=== PATIENT | male | born 1970 | race Two or more races ===

== ENCOUNTER 2017-01-12 17:35 | Inpatient (IN) | payer BC, SELFPAY ==
[~2017-01-12] VITALS: Ht 170.2 cm; Wt 83.4 kg
[2017-01-12] MEDS ORDERED: GLUC500T PO (17:42)
[2017-01-12] MEDS ORDERED: ZOLO50TA PO (17:42)
[2017-01-12] MEDS ORDERED: LISI10TA4 PO (17:42)
[2017-01-12] MEDS ORDERED: NS 1,000 ML IV ONE (18:00)
[2017-01-12] MEDS ORDERED: CLINDAMYCIN 900 MG in APPROPRIATE DILUENT 1 EA IV ONE (18:00)
[2017-01-12] MEDS ORDERED: ACETAMINOPHEN 325 MG TAB PO ONE (18:00)
[2017-01-12] MEDS: metFORMIN (GLUCOPHAGE) 500 MG TAB PO SCH (18:00)
[2017-01-12] MEDS ORDERED: KETOROLAC 30 MG/ML VIAL (J1885) IV ONE (18:00)
[2017-01-12 18:31] LABS: BASO % 0.1 % (0.0-1.0); EOS # 0.1 K/mm3 (0.0-0.50); EOS % 0.6 % (0.0-3.0); LARGE UNSTAINED CELL # 0.1 K/mm3 (0.0-0.4); LARGE UNSTAINED CELL % 0.8 % (0.0-4.0); LYMPH # 0.8 K/mm3 (1.5-4.5); LYMPH % 4.4 % (24.0-44.0); MEAN CORPUSCULAR HEMOGLOBIN 30.9 pg (27.0-33.0); MEAN CORPUSCULAR HGB CONC 34.6 g/dl (32.0-36.5); MEAN CORPUSCULAR VOLUME 89.5 fl (80.0-96.0); MONO # 0.9 K/mm3 (0.0-0.8); MONO % 6.2 % (0.0-5.0); NEUTROPHILS % 87.9 % (36.0-66.0); PLATELET COUNT, AUTOMATED 209 k/mm3 (150-450); RED CELL DISTRIBUTION WIDTH 12.1 % (11.5-14.5); WHITE BLOOD COUNT 14.8 K/mm3 (4.0-10.0)
[2017-01-12 19:11] LABS: ANION GAP 8 MEQ/L (8-16); BLOOD UREA NITROGEN 17 MG/DL (7-18); CALCIUM LEVEL 8.8 MG/DL (8.5-10.1); CARBON DIOXIDE LEVEL 25 MEQ/L (21-32); CHLORIDE LEVEL 104 MEQ/L (98-107); CREATININE FOR GFR 1.04 MG/DL (0.70-1.30); GLOMERULAR FILTRATION RATE > 60.0 (>60); GLUCOSE, FASTING 233 MG/DL (70-105); POTASSIUM SERUM 4.3 MEQ/L (3.5-5.1); SODIUM LEVEL 137 MEQ/L (136-145)
[2017-01-12] MEDS ORDERED: GLUCAGON FOR INJ 1 MG VIAL (J1610) SC PRN (20:00)
[2017-01-12] MEDS ORDERED: NALOXONE INJ 0.4 MG/1 ML VIAL (J2310) IV PRN (20:00)
[2017-01-12] MEDS ORDERED: MORPHINE 2 MG/ML 1ML SYRINGE IV PRN (20:00)
[2017-01-12] MEDS ORDERED: PERCOCET 5MG/325MG TAB PO ONE (20:00)
[2017-01-12] MEDS ORDERED: DEXTROSE 50% 50 ML SYRINGE IV PRN (20:00)
[2017-01-12] MEDS ORDERED: GLUCOSE 4 GM CHEW TABLET PO PRN (20:00)
[2017-01-12] MEDS ORDERED: NS 1,000 ML IV SCH (20:30)
[2017-01-12] MEDS: CEFTAROLINE FOSAMIL 600 MG in D5W MINI-BAG PLUS 50 ML IV SCH (21:00)
[2017-01-12 21:01] LABS: ERYTHROCYTE SEDIMENTATION RATE 55 mm/hr (0-15)
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
[2017-01-12 21:55] VITALS: BP 130/84
[2017-01-12] MEDS: HumaLOG INSULIN (NovoLOG) PER UNIT SC SCH (22:08)
[2017-01-13 06:00] VITALS: BP 127/77
[2017-01-13 07:00] LABS: BASO % 0.2 % (0.0-1.0); EOS # 0.2 K/mm3 (0.0-0.50); EOS % 1.4 % (0.0-3.0); LARGE UNSTAINED CELL # 0.2 K/mm3 (0.0-0.4); LARGE UNSTAINED CELL % 2.1 % (0.0-4.0); LYMPH # 0.9 K/mm3 (1.5-4.5); LYMPH % 7.3 % (24.0-44.0); MEAN CORPUSCULAR HEMOGLOBIN 30.5 pg (27.0-33.0); MEAN CORPUSCULAR HGB CONC 34.9 g/dl (32.0-36.5); MEAN CORPUSCULAR VOLUME 87.2 fl (80.0-96.0); MONO # 0.8 K/mm3 (0.0-0.8); MONO % 6.9 % (0.0-5.0); NEUTROPHILS # 9.6 K/mm3 (1.8-7.7); NEUTROPHILS % 82.2 % (36.0-66.0); PLATELET COUNT, AUTOMATED 235 k/mm3 (150-450); RED CELL DISTRIBUTION WIDTH 11.6 % (11.5-14.5); WHITE BLOOD COUNT 11.7 K/mm3 (4.0-10.0)
[2017-01-13] MEDS: HumaLOG INSULIN (NovoLOG) PER UNIT SC SCH ×4 (07:30→20:05)
[2017-01-13 07:31] LABS: ANION GAP 9 MEQ/L (8-16); BLOOD UREA NITROGEN 17 MG/DL (7-18); CALCIUM LEVEL 8.3 MG/DL (8.5-10.1); CARBON DIOXIDE LEVEL 24 MEQ/L (21-32); CHLORIDE LEVEL 108 MEQ/L (98-107); CHOLESTEROL LEVEL 126 MG/DL (<200); CREATININE FOR GFR 0.91 MG/DL (0.70-1.30); GLOMERULAR FILTRATION RATE > 60.0 (>60); GLUCOSE, FASTING 162 MG/DL (70-105); POTASSIUM SERUM 4.1 MEQ/L (3.5-5.1); SODIUM LEVEL 141 MEQ/L (136-145); TRIGLYCERIDES LEVEL 101 MG/DL (<150)
--- NOTE | 2017-01-13 07:38 | REP ---
Right foot four views: Mineralization and joint spaces are normal. There are no lytic, blastic or destructive changes to suggest osteomyelitis. There is no fracture or dislocation. Impression: Negative right foot. Signed by Dudley Starr MD 01/13/2017 07:30 A
[2017-01-13 07:55] LABS: VENOUS BASE EXCESS 0.2 (-2.0-2.0); VENOUS O2 SATURATION 99.3 % (60.0-80.0); VENOUS PARTIAL PRESSURE O2 165.9 mmHg (30.0-50.0); VENOUS STANDARD HCO3 24.7 MEQ/L; VENOUS TOTAL CO2 25.3 MEQ/L (24.0-28.0)
[2017-01-13] MEDS: LISINOPRIL 10 MG TAB PO SCH (08:52)
[2017-01-13] MEDS: ACETAMINOPHEN TAB 650MG DOSE (2X325MG) PO PRN ×2 (08:52→13:30)
[2017-01-13] MEDS: SERTRALINE HCL 50 MG TAB PO SCH (08:52)
[2017-01-13] MEDS: CEFTAROLINE FOSAMIL 600 MG in D5W MINI-BAG PLUS 50 ML IV SCH ×2 (08:52→20:05)
[2017-01-13] MEDS: metFORMIN (GLUCOPHAGE) 500 MG TAB PO SCH ×2 (08:53→17:55)
--- NOTE | 2017-01-13 11:36 | IPNPDOC ---
Text Note Date of Service The patient was seen on 01/13/17. NOTE Subjective: Patient states that the redness surrounding his right foot infection is improving. Minimal pain. Denies any other complaints. Objective: Vitals: (see below) General: No acute distress, laying comfortably in bed. HEENT: Moist mucous membranes. Neck: No JVD or lymphadenopathy Cardiac: RRR, No murmurs Pulm: Clear to auscultation b/l. No wheezing, rhonchi Abd: NT/ND + BS Ext: No edema or cyanosis. Right foot infection on the plantar surface of the great toe. Previously marked area of cellulitis is improving. Distal pulses intact. Labs (see below) Images: X-ray of right foot unremarkable on 01/12/17. Assessment/Plan 1. Sepsis secondary to Right diabetic foot ulcer- placed on antibiotics. CRP/ WBC elevated. Blood cultures pending. X-ray of right foot negative. We will obtain MRI of the foot to rule out osteomyelitis. Dr. Polanco. Consulted. 2. Diabetes mellitus- blood sugars elevated. Patient states he does not check his blood sugars regularly. Continue Levemir/sliding scale insulin. 3. Hypertension- controlled. Continue home meds. 4. Depression- no suicidal ideations. Continue Zoloft. Will need outpatient follow-up. DVT prophy: Lovenox VS,Fishbone, I+O VS, Fishbone, I+O Laboratory Tests 01/12/17 18:08 Red Blood Count 4.81, Mean Corpuscular Volume 89.5, Mean Corpuscular Hemoglobin 30.9, Mean Corpuscular Hemoglobin Concent 34.6, Red Cell Distribution Width 12.1 , Neutrophils (%) (Auto) 87.9 H, Lymphocytes (%) (Auto) 4.4 L, Monocytes (%) ( Auto) 6.2 H, Eosinophils (%) (Auto) 0.6, Basophils (%) (Auto) 0.1, Neutrophils # (Auto) 13.0 H, Lymphocytes # (Auto) 0.8 L, Monocytes # (Auto) 0.9 H, Eosinophils # (Auto) 0.1, Basophils # (Auto) 0.0, Calcium Level 8.8 01/13/17 06:24 Red Blood Count 4.32, Mean Corpuscular Volume 87.2, Mean Corpuscular Hemoglobin 30.5, Mean Corpuscular Hemoglobin Concent 34.9, Red Cell Distribution Width 11.6 , Neutrophils (%) (Auto) 82.2 H, Lymphocytes (%) (Auto) 7.3 L, Monocytes (%) ( Auto) 6.9 H, Eosinophils (%) (Auto) 1.4, Basophils (%) (Auto) 0.2, Neutrophils # (Auto) 9.6 H, Lymphocytes # (Auto) 0.9 L, Monocytes # (Auto) 0.8, Eosinophils # (Auto) 0.2, Basophils # (Auto) 0.0 Vital Signs Date Time Temp Pulse Resp B/P (MAP) Pulse Ox O2 Delivery O2 Flow Rate FiO2 01/13/17 08:52 127/77 01/13/17 06:32 Room Air 01/13/17 06:00 98.7 93 16 96 I&O- Last 24 Hours up to 6 AM 01/13/17 06:00 Intake Total 225 ml Output Total 0 ml Balance 225 ml DULCE MARIA KOLB MD Jan 13, 2017 11:36
[2017-01-13 14:00] VITALS: BP 133/75
--- NOTE | 2017-01-13 14:16 | REP ---
MRI RIGHT FOOT WITH AND WITHOUT CONTRAST: TECHNIQUE: Multiple sequences obtained in the axial, coronal, and sagittal planes prior to and following the intravenous administration of 15 mL of gadolinium. The osseous structures of the right foot demonstrate normal marrow signal. There is no bone marrow edema. There is no evidence of osteomyelitis. Particular attention is paid to the region of the first metatarsal phalangeal joint where there is reportedly soft tissue infection. There is no underlying osteomyelitis of the first metatarsal or the first toe phalanges. There is ill-defined soft tissue edema in the forefoot primarily in the plantar soft tissues with some mild diffuse ill-defined enhancement of the soft tissues compatible with cellulitis. No abscess collection is seen. IMPRESSION: No evidence of abscess or osteomyelitis. Cellulitis of the forefoot. Signed by Dudley Rodriguez MD 01/14/2017 12:30 P
[2017-01-13] MEDS: PERCOCET 5MG/325MG TAB PO PRN (17:55)
[2017-01-13] MEDS ORDERED: ENOXAPARIN 40 MG/0.4 ML SYRINGE (J1650) SC ONE (21:00)
[2017-01-13 22:00] VITALS: BP 116/68
--- NOTE | 2017-01-13 22:30 | CR ---
DATE OF CONSULTATION: 01/13/2017 REASON FOR CONSULTATION: Right foot infection. HISTORY OF PRESENT ILLNESS: Olu Lott is a 46-year-old male who presented to the emergency room yesterday with a right foot infection. He notes that he has had a blister on his right foot for approximately 2 weeks. He does not have much feeling in his feet and did not have much pain with this up until about Friday. He states on Friday, he noted some bleeding as well as having fevers and chills. He presented to the emergency room on Friday and was admitted for foot infection. He states since being at the hospital he does feel less pain and swelling to his foot. PAST MEDICAL HISTORY: Significant for diabetes, hypertension, depression. PAST SURGICAL HISTORY: Appendectomy and right eye trauma. ALLERGIES: None. HOME MEDICATIONS: - metformin - sertraline - lisinopril FAMILY HISTORY: Father from multiple sclerosis. SOCIAL HISTORY: Denies alcohol or cigarette use. REVIEW OF SYSTEMS: Positive for fever and chills. VITAL SIGNS: Are reviewed. Current temperature is 100.6, pulse is 99, respiratory rate 18, blood pressure 133/75, pulse oximetry 96% on room air. LABS: Are reviewed. On admission his white cell count was 14.8. It is improved, 11.7. His erythrocyte sedimentation rate is 55. CRP was 22.5. Cultures: The right foot culture grew group B Streptococcus. Blood cultures are all pending. IMAGING STUDIES: Are reviewed. Right foot x-ray is negative for bony erosion. There is no soft tissue emphysema noted to suggest gas gangrene. There is some vessel calcification noted. The MRI images are reviewed. No obvious signs of osteomyelitis are noted. Lower extremity examination: There is erythema and edema to the right foot most noted in the plantar aspect of the first metatarsal. There is a small wound plantar to the metatarsal head. There is some malodor and purulent and necrotic tissue within this wound. ASSESSMENT: 46-year-old diabetic male with cellulitis and diabetic ulceration. TREATMENT: Local incision and drainage is performed. After obtaining consent, the right foot was prepped with Betadine solution. No anesthetic was used for this procedure due to patient's neuropathy. Using a #15 blade an incision was made surrounding the wound extending it both distally and proximally. The wound was noted to probe approximately 2 cm to the distal aspect and 1 cm towards the proximal aspect. There is necrotic tissue and purulence noted. This was debrided with #15 blade. The site was irrigated with saline solution, packed with gauze dressing. Start saline wet to dry dressings three times daily, continue current antibiotics. Will monitor foot. Possibility of incision and drainage in operating room if there is not significant improvement in the infection in the next few days.
[2017-01-14 06:00] VITALS: BP 127/67
[2017-01-14 06:59] LABS: BASO % 0.2 % (0.0-1.0); EOS # 0.1 K/mm3 (0.0-0.50); EOS % 0.6 % (0.0-3.0); LARGE UNSTAINED CELL # 0.2 K/mm3 (0.0-0.4); LARGE UNSTAINED CELL % 1.8 % (0.0-4.0); LYMPH # 1.2 K/mm3 (1.5-4.5); LYMPH % 7.7 % (24.0-44.0); MEAN CORPUSCULAR HEMOGLOBIN 30.7 pg (27.0-33.0); MEAN CORPUSCULAR HGB CONC 34.3 g/dl (32.0-36.5); MEAN CORPUSCULAR VOLUME 89.5 fl (80.0-96.0); MONO # 0.9 K/mm3 (0.0-0.8); MONO % 7.1 % (0.0-5.0); NEUTROPHILS # 10.6 K/mm3 (1.8-7.7); NEUTROPHILS % 82.5 % (36.0-66.0); PLATELET COUNT, AUTOMATED 233 k/mm3 (150-450); RED CELL DISTRIBUTION WIDTH 11.8 % (11.5-14.5); WHITE BLOOD COUNT 12.9 K/mm3 (4.0-10.0)
[2017-01-14 07:07] LABS: ANION GAP 10 MEQ/L (8-16); BLOOD UREA NITROGEN 15 MG/DL (7-18); CALCIUM LEVEL 8.5 MG/DL (8.5-10.1); CARBON DIOXIDE LEVEL 25 MEQ/L (21-32); CHLORIDE LEVEL 104 MEQ/L (98-107); CREATININE FOR GFR 0.92 MG/DL (0.70-1.30); GLOMERULAR FILTRATION RATE > 60.0 (>60); GLUCOSE, FASTING 128 MG/DL (70-105); POTASSIUM SERUM 3.8 MEQ/L (3.5-5.1); SODIUM LEVEL 139 MEQ/L (136-145)
[2017-01-14] MEDS: HumaLOG INSULIN (NovoLOG) PER UNIT SC SCH ×4 (07:54→20:23)
[2017-01-14] MEDS: LISINOPRIL 10 MG TAB PO SCH (07:54)
[2017-01-14] MEDS: SERTRALINE HCL 50 MG TAB PO SCH (07:55)
[2017-01-14] MEDS: metFORMIN (GLUCOPHAGE) 500 MG TAB PO SCH ×2 (07:55→18:00)
[2017-01-14] MEDS: ENOXAPARIN 40 MG/0.4 ML SYRINGE (J1650) SC SCH (07:55)
[2017-01-14] MEDS: CEFTAROLINE FOSAMIL 600 MG in D5W MINI-BAG PLUS 50 ML IV SCH ×2 (07:55→20:29)
[2017-01-14] MEDS: ACETAMINOPHEN TAB 650MG DOSE (2X325MG) PO PRN ×2 (13:02→18:39)
[2017-01-14 14:00] VITALS: BP 124/75
--- NOTE | 2017-01-14 14:32 | IPN ---
DATE: 01/14/2017 Patient is seen and examined at the bedside. Denies overnight complaints. States not much more pain in his foot. Vital signs are reviewed. He had a fever overnight, this has since resolved, most recent temperature is 97.3. Labs are reviewed. White blood cell count is elevated up to 12.9 from 11.7 yesterday. His blood cultures are negative. LOWER EXTREMITY EXAMINATION: There remains necrotic and purulent material within the wound. Erythema is somewhat improved compared to prior exam. ASSESSMENT: This is a 46-year-old diabetic male with right foot infection, abscess, and cellulitis status post bedside incision and drainage. PLAN: Will plan for operating room tomorrow for operative incision and drainage and debridement of necrotic tissue. He will be nothing by mouth after morning breakfast. Procedure will be after 4:30 p.m.
--- NOTE | 2017-01-14 18:35 | IPN ---
DATE: 01/14/2017 Patient seen and examined. No acute events overnight. Denies any chest pain, pressure or discomfort, shortness of breath. Right lower extremity wound continues to be painful. Denies any fever or chills. VITAL SIGNS: Temperature 98.4, pulse 86, respirations 16, blood pressure 124/75, pulse oximetry 97% on room air. LABORATORY DATA: WBC 12.9, hemoglobin and hematocrit 12.8 over 37.3, platelets 233. Sodium 139, potassium 3.8, chloride 104, bicarbonate 25, BUN 15, creatinine 0.92. C-reactive protein 29.4. PHYSICAL EXAMINATION: GENERAL: Patient alert and oriented times three, in no acute distress. HEENT: Normocephalic, atraumatic. Moist mucous membranes. NECK: Supple. CARDIAC: Regular rate and rhythm. Normal S1, S2. PULMONARY: Bilaterally clear. No wheeze, rales or rhonchi. ABDOMEN: Soft, nontender, positive bowel sounds. EXTREMITIES: No edema bilateral lower extremities. Dorsalis pedis (DP), posterior tibial (PT) pulses intact bilateral. Right foot infection plantar surface of the base of great toe with open ulcers, with erythema spreading to the dorsal surface up to the allison. ASSESSMENT AND PLAN: This is a 46-year-old male patient with underlying medical history of diabetes, hypertension, severe depression, dyslipidemia, history of Tylenol overdose, presented with right foot blister, fevers and chills. Problems: 1. Sepsis secondary to right diabetic foot ulcer. Patient currently on antibiotics. Followup white blood cells (WBC), C-reactive protein (CRP), cultures. Dr. Polanco has been consulted. MRI negative for osteomyelitis. Will likely go to the operating room (OR) for debridement tomorrow. Continue Teflaro. Followup cultures. 2. Diabetes. Followup fingersticks. Insulin per protocol, basal bolus. Adjust as needed. 3. Hypertension. Controlled. Continue current medications. 4. Depression. No suicidal ideation. Continue current medications. Followup as an outpatient. 5. Deep vein thrombosis (DVT) Prophylaxis. Lovenox subcutaneously. DISPOSITION PLANNING: Pending clinical improvement, cultures and management of the wound as per podiatry.
[2017-01-14 22:00] VITALS: BP 130/80
[2017-01-15] VITALS (8 sets, daily range): BP systolic 117–140; BP diastolic 67–90
[2017-01-15] MEDS: ACETAMINOPHEN TAB 650MG DOSE (2X325MG) PO PRN ×3 (06:07→22:01)
[2017-01-15 06:40] LABS: BASO % 0.3 % (0.0-1.0); EOS # 0.1 K/mm3 (0.0-0.50); EOS % 0.5 % (0.0-3.0); LARGE UNSTAINED CELL # 0.2 K/mm3 (0.0-0.4); LARGE UNSTAINED CELL % 1.7 % (0.0-4.0); LYMPH # 1.1 K/mm3 (1.5-4.5); LYMPH % 6.7 % (24.0-44.0); MEAN CORPUSCULAR HEMOGLOBIN 30.5 pg (27.0-33.0); MEAN CORPUSCULAR HGB CONC 35.1 g/dl (32.0-36.5); MEAN CORPUSCULAR VOLUME 86.9 fl (80.0-96.0); MONO # 1.1 K/mm3 (0.0-0.8); MONO % 8.4 % (0.0-5.0); NEUTROPHILS # 10.6 K/mm3 (1.8-7.7); NEUTROPHILS % 82.5 % (36.0-66.0); PLATELET COUNT, AUTOMATED 266 k/mm3 (150-450); RED CELL DISTRIBUTION WIDTH 11.8 % (11.5-14.5); WHITE BLOOD COUNT 12.9 K/mm3 (4.0-10.0)
[2017-01-15 07:06] LABS: ANION GAP 11 MEQ/L (8-16); BLOOD UREA NITROGEN 13 MG/DL (7-18); CALCIUM LEVEL 8.4 MG/DL (8.5-10.1); CARBON DIOXIDE LEVEL 26 MEQ/L (21-32); CHLORIDE LEVEL 102 MEQ/L (98-107); CREATININE FOR GFR 0.93 MG/DL (0.70-1.30); GLOMERULAR FILTRATION RATE > 60.0 (>60); GLUCOSE, FASTING 139 MG/DL (70-105); POTASSIUM SERUM 3.9 MEQ/L (3.5-5.1); SODIUM LEVEL 139 MEQ/L (136-145)
[2017-01-15] MEDS: HumaLOG INSULIN (NovoLOG) PER UNIT SC SCH ×4 (07:30→20:47)
[2017-01-15] MEDS: metFORMIN (GLUCOPHAGE) 500 MG TAB PO SCH ×2 (09:10→18:00)
[2017-01-15] MEDS: ENOXAPARIN 40 MG/0.4 ML SYRINGE (J1650) SC SCH (09:10)
[2017-01-15] MEDS: SERTRALINE HCL 50 MG TAB PO SCH (09:12)
[2017-01-15] MEDS: cefTRIAXone SOD 2 GM in D5W MINI-BAG PLUS 50 ML IV SCH (09:13)
[2017-01-15] MEDS: LISINOPRIL 10 MG TAB PO SCH (09:13)
[2017-01-15] MEDS: NS 1,000 ML IV SCH ×2 (12:12→21:07)
[2017-01-15] MEDS ORDERED: SODIUM CHLORIDE 0.9% 1000 ML IV ONE (14:15)
--- NOTE | 2017-01-15 16:31 | IPN ---
DATE: 01/15/2017 Patient seen and examined. No acute events overnight. Report of right lower extremity pain to be tolerable. Was febrile during the day today. Denies any chest pain, pressure, or discomfort, shortness of breath. VITAL SIGNS: Maximum temperature 102.6, current temperature 102.6, pulse 100, respirations 18, blood pressure 138/77, pulse oximetry 94% on room air. LABORATORY DATA: WBC 12.9, hemoglobin and hematocrit 13.2/37.5, platelets 266. Chemistry: Sodium 139, potassium 3.9, chloride 102, bicarbonate 26, BUN 13, creatinine 0.9. PHYSICAL EXAMINATION: GENERAL: Patient alert and oriented times three in no acute distress. HEENT: Normocephalic, atraumatic. Moist mucous membranes. NECK: Supple. CARDIAC: Regular rate and rhythm. Normal S1, S2. PULMONARY: Bilaterally clear to auscultation. No wheezes, rales, or rhonchi. ABDOMEN: Soft and nontender. Positive bowel sounds. EXTREMITIES: No edema, bilateral lower extremities. Dorsalis pedis (DP), posterior tibialis (PT) pulses intact. Right foot infection, plantar surface of the base of great toe with open ulcer and wound and erythema spreading to the dorsal surface up to the allison. Seems to be fading in color. ASSESSMENT AND PLAN: This is a 46-year-old male patient with underlying medical history of diabetes, hypertension, severe depression, dyslipidemia, history of Tylenol overdose, presented with right foot blisters, fevers, and chills. 1. Sepsis secondary to right diabetic foot ulcer. Patient currently on antibiotics, Intravenous (IV) fluids. Followup white blood cells, C-reactive protein. Dr. Polanco has been consulted. MRI negative for osteomyelitis. Will be going to the operating room (OR) today for debridement. Antibiotics switched from Telfaro to Rocephin based on cultures. 2. Diabetes, type 2. Followup fingersticks. Insulin is per protocol. Basal bolus. Adjust as needed. 3. Hypertension, controlled. Continue current medication. 4. Depression. No suicidal ideation. Continue current medication. Followup as outpatient. 5. Deep vein thrombosis (DVT) prophylaxis. Lovenox subcutaneous. DISPOSITION: Pending clinical improvement. Further management as per podiatry. Likely going for debridement today.
[2017-01-15] MEDS ORDERED: fentaNYL 100 MCG/2 ML INJECTION (J3010) As Ordered ONE (17:18)
[2017-01-15] MEDS ORDERED: LIDOCAINE 2% INJ 100 MG/5 ML SDV (FOR ANES.) As Ordered ONE (17:18)
[2017-01-15] MEDS ORDERED: MIDAZOLAM INJ 2 MG/2 ML VIAL (J2250) As Ordered ONE (17:19)
[2017-01-15] MEDS ORDERED: LIDOCAINE 1% SDV INJ 30 ML VIAL As Ordered ONE (17:20)
[2017-01-15] MEDS ORDERED: BUPIVACAINE HCL 0.5% 30 ML VIAL As Ordered ONE (17:20)
[2017-01-15] MEDS ORDERED: PERCOCET 5MG/325MG TAB PO PRN (19:00)
[2017-01-15] MEDS ORDERED: fentaNYL 100 MCG/2 ML INJECTION (J3010) IV PRN (19:00)
[2017-01-15] MEDS ORDERED: ONDANSETRON 4MG/2ML VIAL (J2405) IV PRN (19:00)
[2017-01-15] MEDS ORDERED: METOCLOPRAMIDE INJ 10MG/2ML VIAL (J2765) IV PRN (19:00)
[2017-01-15] MEDS ORDERED: LR 1,000 ML IV SCH (19:00)
[2017-01-15] MEDS: KETOROLAC 30 MG/ML VIAL (J1885) IV PRN (23:29)
[2017-01-16] VITALS (7 sets, daily range): BP systolic 118–147; BP diastolic 64–84
[2017-01-16] MEDS: ACETAMINOPHEN TAB 650MG DOSE (2X325MG) PO PRN ×3 (05:54→20:28)
[2017-01-16 06:54] LABS: BASO % 0.1 % (0.0-1.0); EOS # 0.2 K/mm3 (0.0-0.50); EOS % 1.3 % (0.0-3.0); LARGE UNSTAINED CELL # 0.2 K/mm3 (0.0-0.4); LARGE UNSTAINED CELL % 1.6 % (0.0-4.0); LYMPH # 0.9 K/mm3 (1.5-4.5); LYMPH % 5.3 % (24.0-44.0); MEAN CORPUSCULAR HEMOGLOBIN 30.7 pg (27.0-33.0); MEAN CORPUSCULAR HGB CONC 35.5 g/dl (32.0-36.5); MEAN CORPUSCULAR VOLUME 86.6 fl (80.0-96.0); MONO # 1.2 K/mm3 (0.0-0.8); MONO % 9.4 % (0.0-5.0); NEUTROPHILS # 10.4 K/mm3 (1.8-7.7); NEUTROPHILS % 82.2 % (36.0-66.0); PLATELET COUNT, AUTOMATED 274 k/mm3 (150-450); RED CELL DISTRIBUTION WIDTH 11.7 % (11.5-14.5); WHITE BLOOD COUNT 12.7 K/mm3 (4.0-10.0)
[2017-01-16 07:15] LABS: ANION GAP 11 MEQ/L (8-16); BLOOD UREA NITROGEN 17 MG/DL (7-18); CALCIUM LEVEL 7.8 MG/DL (8.5-10.1); CARBON DIOXIDE LEVEL 22 MEQ/L (21-32); CHLORIDE LEVEL 105 MEQ/L (98-107); CREATININE FOR GFR 0.85 MG/DL (0.70-1.30); GLOMERULAR FILTRATION RATE > 60.0 (>60); GLUCOSE, FASTING 183 MG/DL (70-105); POTASSIUM SERUM 3.7 MEQ/L (3.5-5.1); SODIUM LEVEL 138 MEQ/L (136-145)
[2017-01-16] MEDS: cefTRIAXone SOD 2 GM in D5W MINI-BAG PLUS 50 ML IV SCH (09:26)
[2017-01-16] MEDS: HumaLOG INSULIN (NovoLOG) PER UNIT SC SCH ×4 (09:27→20:25)
[2017-01-16] MEDS: metFORMIN (GLUCOPHAGE) 500 MG TAB PO SCH ×2 (09:27→18:29)
[2017-01-16] MEDS: SERTRALINE HCL 50 MG TAB PO SCH (09:28)
[2017-01-16] MEDS: ENOXAPARIN 40 MG/0.4 ML SYRINGE (J1650) SC SCH (09:28)
[2017-01-16] MEDS: LISINOPRIL 10 MG TAB PO SCH (09:32)
[2017-01-16] MEDS: NS 1,000 ML IV SCH ×2 (09:37→17:13)
--- NOTE | 2017-01-16 17:04 | IPN ---
DATE: 01/16/2017 The patient is seen and examined. No acute events overnight. The patient was febrile overnight. Denies any chest pain, pressure or discomfort. Reported only minimal right lower extremity discomfort. VITAL SIGNS: Maximum temperature (T-max) 100.5, current temperature 99.9, pulse 90, respirations 16, blood pressure 129/69, pulse oximetry 96% on room air. LABORATORY DATA: WBC 12.7, hemoglobin and hematocrit 11.9/33.6, platelets 274. Chemistry: Sodium 138, potassium 3.7, chloride 105, bicarbonate 22, BUN 17, creatinine 0.85, C-reactive protein 22.9. PHYSICAL EXAMINATION: GENERAL: Patient alert and oriented times three, in no acute distress. HEENT: Normocephalic, atraumatic. Moist mucous membranes. NECK: Supple. CARDIAC: Regular rate and rhythm with normal S1, S2. PULMONARY: Bilaterally clear to auscultation. No wheezes, rales, or rhonchi. ABDOMEN: Soft, nontender. Positive bowel sounds. EXTREMITIES: No edema of bilateral lower extremities. Dorsalis pedis (DP), posterior tibialis (PT) pulses intact bilaterally. Right lower extremity dressing clean, dry and intact. ASSESSMENT AND PLAN: This is a 46-year-old male patient with underlying medical history of diabetes, hypertension, severe depression, dyslipidemia, history of Tylenol overdose who presented with right foot blisters, fevers and chills. 1. Sepsis secondary to diabetic foot ulcer. Patient currently on antibiotics, IV fluids initially provided. Followup white blood cell (WBC), C-reactive protein. Dr. Polanco has been consulted. MRI negative for osteomyelitis or abscess. Patient taken to the operating room (OR) yesterday for debridement. Antibiotics currently switched from Telfaro to Rocephin based on cultures. We will continue to follow. Wound care as per Dr. Polanco. 2. Type 2 diabetes. Holding oral medication. Basal bolus insulin, adjust as needed. Followup fingersticks. 3. Hypertension. Continue current medication. 4. Depression. No suicidal ideation. Continue current medication. Outpatient followup. 5. Deep vein thrombosis (DVT) prophylaxis. Lovenox subcutaneous. DISPOSITION PLANNING: Pending clinical improvement. Followup C-reactive protein, white blood cell (WBC), wound care as per Dr. Polanco. As per Dr. Polanco, no weightbearing on right lower extremity. Physical therapy (PT) has been ordered.
[2017-01-16] MEDS: KETOROLAC 30 MG/ML VIAL (J1885) IV PRN (22:59)
[2017-01-17] MEDS: NS 1,000 ML IV SCH ×3 (02:49→23:42)
[2017-01-17 06:00] VITALS: BP 148/88
[2017-01-17 06:27] LABS: MEAN CORPUSCULAR HEMOGLOBIN 30.2 pg (27.0-33.0); MEAN CORPUSCULAR HGB CONC 34.4 g/dl (32.0-36.5); MEAN CORPUSCULAR VOLUME 87.9 fl (80.0-96.0); RED CELL DISTRIBUTION WIDTH 11.7 % (11.5-14.5); WHITE BLOOD COUNT 10.3 K/mm3 (4.0-10.0)
[2017-01-17 06:52] LABS: ANION GAP 7 MEQ/L (8-16); BLOOD UREA NITROGEN 13 MG/DL (7-18); CARBON DIOXIDE LEVEL 26 MEQ/L (21-32); CHLORIDE LEVEL 108 MEQ/L (98-107); CREATININE FOR GFR 0.78 MG/DL (0.70-1.30); GLOMERULAR FILTRATION RATE > 60.0 (>60); GLUCOSE, FASTING 185 MG/DL (70-105); MAGNESIUM LEVEL 2.1 MG/DL (1.8-2.4); POTASSIUM SERUM 3.8 MEQ/L (3.5-5.1); SODIUM LEVEL 141 MEQ/L (136-145)
[2017-01-17] MEDS: HumaLOG INSULIN (NovoLOG) PER UNIT SC SCH ×4 (08:25→21:00)
[2017-01-17] MEDS: SERTRALINE HCL 50 MG TAB PO SCH (08:26)
[2017-01-17] MEDS: metFORMIN (GLUCOPHAGE) 500 MG TAB PO SCH ×2 (08:26→17:45)
[2017-01-17] MEDS: cefTRIAXone SOD 2 GM in D5W MINI-BAG PLUS 50 ML IV SCH (08:26)
[2017-01-17] MEDS: ENOXAPARIN 40 MG/0.4 ML SYRINGE (J1650) SC SCH (08:26)
[2017-01-17] MEDS: LISINOPRIL 10 MG TAB PO SCH (08:26)
[2017-01-17 14:00] VITALS: BP 159/89
--- NOTE | 2017-01-17 18:21 | IPN ---
DATE: 01/17/2017 Patient seen and examined. No acute events overnight. Patient had a fever spike, 101.2. Denies any chest pain, pressure, or discomfort, shortness of breath. Reported wound pain from right lower extremity to be the same as before. Does not really bother him much if he is not moving much. VITAL SIGNS: Maximum temperature 101.2, current temperature 99.4, pulse 71, respirations 20, blood pressure 148/88, pulse oximetry 97% on room air. LABORATORY DATA: WBC 10.2, hemoglobin and hematocrit 11.7/34.1, platelets 318. Chemistry: Sodium 141, potassium 3.8, chloride 108, bicarbonate 26, BUN 13, creatinine 0.78. PHYSICAL EXAMINATION: GENERAL: Patient alert and oriented times three in no acute distress. HEENT: Normocephalic, atraumatic. Moist mucous membranes. NECK: Supple. CARDIAC: Regular rate and rhythm. Normal S1, S2. PULMONARY: Bilaterally clear to auscultation. No wheezes, rales, or rhonchi. ABDOMEN: Soft and nontender. Positive bowel sounds. EXTREMITIES: NO edema, bilateral lower extremities. Dorsalis pedis (DP) pulses intact. Right lower extremity dressing clean, dry, and intact. ASSESSMENT AND PLAN: This is a 46-year-old male patient with underlying medical history of diabetes, hypertension, severe depression, dyslipidemia, history of Tylenol overdose, presented with right foot blister and fevers and chills. 1. Sepsis secondary to diabetic foot ulcer. Patient currently on antibiotics. Intravenous (IV) fluids initially provided. Follow C-reactive protein and white blood cells (WBC). Dr. Polanco has been consulted. MRI negative for osteomyelitis or abscess. Patient was taken to the operating room (OR) for debridement. Antibiotics currently switched to Rocephin from Teflaro based on culture. Will continue to followup with Dr. Polanco regarding wound care. 2. Type 2 diabetes. Holding oral medication. Basal bolus insulin. Adjust as needed. 3. Hypertension. Continue current medication. 4. Depression. No suicidal ideation. Continue current medication. Outpatient followup. 5. Deep vein thrombosis (DVT) prophylaxis. Lovenox subcutaneous. DISPOSITION: Pending clinical improvement. Followup C-reactive protein, WBC. Dr. Polanco for further recommendation. Physical therapy. No weightbearing on the right lower extremity as per Dr. Polanco.
[2017-01-17 22:00] VITALS: BP 144/78
[2017-01-17] MEDS: PERCOCET 5MG/325MG TAB PO PRN (22:20)
[2017-01-18] VITALS (10 sets, daily range): BP systolic 125–170; BP diastolic 79–100
--- NOTE | 2017-01-18 05:15 | IPN ---
DATE OF SERVICE: 01/16/2017 Patient seen and examined at bedside. Denies overnight complaints. States not much pain in his foot. He did have a fever overnight. Maximum temperature (T max) was 100.5, presently is 98.4. Labs were reviewed. White blood cell count is 12.7 down from 12.9. CRP is down to 22.9 from 25.8. Operating room (OR) cultures are growing early growth of Streptococcus agalactiae group B. Anaerobic cultures are pending. Lower extremity examination: Erythema and edema somewhat improved to the left foot. Wounds are inspected. There is no purulence with expression. Some minimal necrosis at edges of wounds. No malodor. ASSESSMENT: 46-year-old diabetic male with left foot cellulitis and abscess status post incision and drainage. PLAN: Continue current antibiotics. Await final operating room (OR) cultures. Continue nonweightbearing. Continue saline wet-to-dry three times daily. Will continue to monitor wound, white blood cell count and C-reactive protein (CRP), as well as his fevers. Should these be unimproved tomorrow, may require additional incision and drainage and washout likely to be performed Friday morning.
[2017-01-18 06:42] LABS: MEAN CORPUSCULAR HEMOGLOBIN 30.1 pg (27.0-33.0); MEAN CORPUSCULAR HGB CONC 34.3 g/dl (32.0-36.5); MEAN CORPUSCULAR VOLUME 87.6 fl (80.0-96.0); RED CELL DISTRIBUTION WIDTH 11.6 % (11.5-14.5); WHITE BLOOD COUNT 9.9 K/mm3 (4.0-10.0)
[2017-01-18 06:43] LABS: ANION GAP 8 MEQ/L (8-16); BLOOD UREA NITROGEN 8 MG/DL (7-18); CALCIUM LEVEL 7.8 MG/DL (8.5-10.1); CARBON DIOXIDE LEVEL 26 MEQ/L (21-32); CHLORIDE LEVEL 109 MEQ/L (98-107); GLOMERULAR FILTRATION RATE > 60.0 (>60); GLUCOSE, FASTING 151 MG/DL (70-105); POTASSIUM SERUM 3.7 MEQ/L (3.5-5.1); SODIUM LEVEL 143 MEQ/L (136-145)
[2017-01-18] MEDS: HumaLOG INSULIN (NovoLOG) PER UNIT SC SCH ×4 (07:18→21:00)
[2017-01-18] MEDS ORDERED: MIDAZOLAM INJ 2 MG/2 ML VIAL (J2250) As Ordered ONE (08:00)
[2017-01-18] MEDS ORDERED: PROPOFOL 200 MG/20 ML VIAL As Ordered ONE (08:00)
[2017-01-18] MEDS ORDERED: LIDOCAINE 2% INJ 100 MG/5 ML SDV (FOR ANES.) As Ordered ONE (08:00)
[2017-01-18] MEDS ORDERED: fentaNYL 100 MCG/2 ML INJECTION (J3010) As Ordered ONE (08:00)
[2017-01-18] MEDS ORDERED: BUPIVACAINE HCL 0.5% 10 ML VIAL As Ordered ONE (08:01)
[2017-01-18] MEDS ORDERED: LIDOCAINE 1% MDV 20ML VIAL As Ordered ONE (08:01)
[2017-01-18] MEDS: cefTRIAXone SOD 2 GM in D5W MINI-BAG PLUS 50 ML IV SCH (08:04)
[2017-01-18] MEDS ORDERED: ONDANSETRON 4MG/2ML VIAL (J2405) IV PRN (10:00)
[2017-01-18] MEDS ORDERED: fentaNYL 100 MCG/2 ML INJECTION (J3010) IV PRN (10:00)
[2017-01-18] MEDS ORDERED: PERCOCET 5MG/325MG TAB PO PRN (10:00)
[2017-01-18] MEDS ORDERED: LR 1,000 ML IV SCH (10:00)
[2017-01-18] MEDS: LISINOPRIL 10 MG TAB PO SCH (10:13)
[2017-01-18] MEDS: ENOXAPARIN 40 MG/0.4 ML SYRINGE (J1650) SC SCH (10:13)
[2017-01-18] MEDS: SERTRALINE HCL 50 MG TAB PO SCH (10:14)
[2017-01-18] MEDS: metFORMIN (GLUCOPHAGE) 500 MG TAB PO SCH ×2 (10:14→17:30)
[2017-01-18] MEDS: ACETAMINOPHEN TAB 650MG DOSE (2X325MG) PO PRN ×2 (11:39→22:50)
[2017-01-18] MEDS: PERCOCET 5MG/325MG TAB PO PRN ×2 (13:56→20:49)
--- NOTE | 2017-01-18 19:58 | IPN ---
DATE: 01/18/2017 SUBJECTIVE: The patient is seen and examined. No acute events overnight. The patient only had mild temperature elevation overnight. Denies any chest pain, pressure, discomfort. VITAL SIGNS: Temperature maximum (T-max) 100.1. Temperature current 98.7, pulse 81, respirations 19, blood pressure 145/90, pulse 95% on room air. LABORATORY DATA: WBC 9.9, hemoglobin and hematocrit 11.1 over 32.4, platelets 336. Chemistry: Sodium 142, potassium 3.7, chloride 109, bicarbonate 26, BUN eight, creatinine 0.7. PHYSICAL EXAMINATION: GENERAL: Patient alert and oriented times three in no acute distress. HEENT: Normocephalic, atraumatic. Moist mucous membranes. NECK: Supple. CARDIAC: Regular rate and rhythm. Normal S1, S2. PULMONARY: Bilateral clear to auscultation. No wheezes, rales, or rhonchi. ABDOMEN: Soft, nontender. Positive bowel sounds. EXTREMITIES: No edema bilateral lower extremities. Dorsalis pedis and posterior tibial pulses intact. Dressing clean, dry and intact. ASSESSMENT AND PLAN: This is a 46-year-old male patient with underlying medical history of diabetes, hypertension, severe depression, dyslipidemia, history of Tylenol overdose, presented with right foot blisters and fevers and chills. 1. Sepsis secondary to diabetic foot ulcer. Patient currently on antibiotics, intravenous (IV) fluids initially provided. Followup C-reactive protein, white blood cell count. Dr. Polanco from podiatry has been consulted. MRI negative for osteomyelitis or abscess. The patient was taken to the operating room (OR) for further debridement and washout today for the second time. Antibiotics switched to Rocephin from Teflaro based on culture. Will continue to followup Dr. Polanco's recommendation. 2. Type 2 diabetes. Holding oral medications. Basal bolus insulin. Adjust as needed. 3. Hypertension. Continue current medication. 4. Depression. No suicidal ideation. Continue current medication. Followup as outpatient. 5. Deep venous thrombosis (DVT) prophylaxis. Lovenox subcutaneous. DISPOSITION: Pending clinical improvement, physical therapy. No weightbearing as per Dr. Polanco. Will discuss with Dr. Polanco further plans for disposition.
[2017-01-19 02:00] VITALS: BP 125/76
[2017-01-19 05:33] LABS: MEAN CORPUSCULAR HGB CONC 34.6 g/dl (32.0-36.5); MEAN CORPUSCULAR VOLUME 86.7 fl (80.0-96.0); RED CELL DISTRIBUTION WIDTH 11.9 % (11.5-14.5); WHITE BLOOD COUNT 10.8 K/mm3 (4.0-10.0)
[2017-01-19 06:00] VITALS: BP 160/85
[2017-01-19 06:05] LABS: ANION GAP 7 MEQ/L (8-16); BLOOD UREA NITROGEN 7 MG/DL (7-18); CALCIUM LEVEL 8.2 MG/DL (8.5-10.1); CARBON DIOXIDE LEVEL 30 MEQ/L (21-32); CHLORIDE LEVEL 105 MEQ/L (98-107); CREATININE FOR GFR 0.84 MG/DL (0.70-1.30); GLOMERULAR FILTRATION RATE > 60.0 (>60); GLUCOSE, FASTING 109 MG/DL (70-105); POTASSIUM SERUM 4.1 MEQ/L (3.5-5.1); SODIUM LEVEL 142 MEQ/L (136-145)
[2017-01-19] MEDS: HumaLOG INSULIN (NovoLOG) PER UNIT SC SCH ×4 (07:30→20:33)
[2017-01-19] MEDS: SERTRALINE HCL 50 MG TAB PO SCH (08:08)
[2017-01-19] MEDS: metFORMIN (GLUCOPHAGE) 500 MG TAB PO SCH ×2 (08:08→17:32)
[2017-01-19] MEDS: LISINOPRIL 10 MG TAB PO SCH (08:08)
[2017-01-19] MEDS: ENOXAPARIN 40 MG/0.4 ML SYRINGE (J1650) SC SCH (08:10)
[2017-01-19] MEDS: cefTRIAXone SOD 2 GM in D5W MINI-BAG PLUS 50 ML IV SCH (08:10)
--- NOTE | 2017-01-19 08:32 | REP ---
Portable chest x-ray: Sitting AP view. History: Fever. Comparison study: October 01, 2007. Findings: There are old healed rib fractures on the left. The lungs are well inflated and clear. Cardiomediastinal silhouette is unremarkable. There is a linear density behind the heart in the left base, which may be discoid atelectasis or linear fibrosis. No infiltrate is seen. No other abnormality. Impression: Plate-like atelectasis versus linear fibrosis left lower lobe. Otherwise no active disease. Signed by Brenden Davila MD 01/19/2017 08:49 A
[2017-01-19 10:00] VITALS: BP 147/82
[2017-01-19] MEDS: AMPICILLIN SOD 2 GM in D5W MINI-BAG PLUS 100 ML IV SCH ×3 (12:25→23:53)
--- NOTE | 2017-01-19 12:53 | IPN ---
DATE: 01/17/2017 Patient seen and examined at bedside. Denies overnight complaints. State she did sleep well. Denies pain in his food. Vitals are reviewed. Most recent temperature was 99.4, T-max was 101.2 last night at 10:50 p.m. Labs are reviewed. White blood cell count is 10.3 down from 12.7, CRP is 18.1 down from 22.9. Lower extremity examination somewhat improved in terms of erythema and edema. There is persisting drainage noted from the dorsal incision with a fair amount of seropurulent material. ASSESSMENT: 46-year-old diabetic male with ulceration, abscess and infection to the right foot. PLAN: Will plan repeat incision and drainage tomorrow morning. He will be nothing by mouth at midnight. Continue antibiotics. Will follow.
[2017-01-19 14:00] VITALS: BP 135/74
[2017-01-19 16:00] VITALS: BP 158/89
--- NOTE | 2017-01-19 17:14 | IPN ---
DATE: 01/19/2017 SUBJECTIVE: Patient seen and examined. No acute events overnight. Denies any chest pain, pressure or discomfort. Temperature maximum (temperature maximum) 101.5, temperature current 99, pulse 83, respirations 18, blood pressure 135/74. Pulse oximetry 96% on room air. LABORATORY DATA: WBC 10.8, hemoglobin and hematocrit 10.6 over 30.6, platelets 331. Chemistry: Sodium 142, potassium 4.1, chloride 105, bicarbonate 30, BUN seven, creatinine 0.8, C-reactive protein 16. PHYSICAL EXAMINATION: GENERAL: Patient alert and oriented times three in no acute distress. HEENT: Normocephalic, atraumatic. PULMONARY: Bilaterally clear to auscultation. CARDIAC: Regular rate and rhythm. Normal S1, S2. ABDOMEN: Soft, nontender. Positive bowel sounds. EXTREMITIES: No edema bilateral lower extremities. Dorsalis pedis and posterior tibial (DPPT) pulses intact. Dressing clean, dry and intact. ASSESSMENT AND PLAN: This is a 46-year-old male patient with underlying medical history of diabetes, hypertension, severe depression, dyslipidemia, history of Tylenol overdose, who presented with right foot blisters and cellulitis, fevers and chills. 1. Sepsis secondary to diabetic foot ulcer. Patient currently on antibiotics, intravenous (IV) fluids initially provided. Followup C-reactive protein, white blood count. Dr. Polanco, podiatry, has been consulted. MRI negative for osteomyelitis or abscess. The patient has been taken to the operating room for further debridement and washout twice this admission. Antibiotics switched from Teflaro to Rocephin. Will continue to follow Dr. Polanco's recommendations. 2. Type 2 diabetes. Holding oral medication. Basal bolus insulin. Adjust as needed. 3. Hypertension. Continue current medication. 4. Depression. No suicidal ideation. Continue current medication. Followup outpatient. 5. Deep venous thrombosis (DVT) prophylaxis, had Lovenox subcutaneous. DISPOSITION: Pending clinical improvement. Followup with Dr. Polanco, physical therapy.
[2017-01-19 22:00] VITALS: BP 135/80
[2017-01-20 02:00] VITALS: BP 126/75
[2017-01-20] MEDS: AMPICILLIN SOD 2 GM in D5W MINI-BAG PLUS 100 ML IV SCH ×2 (05:38→12:35)
[2017-01-20 06:00] VITALS: BP 134/79
[2017-01-20 06:29] LABS: MEAN CORPUSCULAR HEMOGLOBIN 29.5 pg (27.0-33.0); MEAN CORPUSCULAR HGB CONC 34.1 g/dl (32.0-36.5); MEAN CORPUSCULAR VOLUME 86.7 fl (80.0-96.0); RED CELL DISTRIBUTION WIDTH 11.7 % (11.5-14.5); WHITE BLOOD COUNT 8.6 K/mm3 (4.0-10.0)
[2017-01-20 06:48] LABS: ANION GAP 9 MEQ/L (8-16); BLOOD UREA NITROGEN 6 MG/DL (7-18); CALCIUM LEVEL 8.2 MG/DL (8.5-10.1); CARBON DIOXIDE LEVEL 29 MEQ/L (21-32); CHLORIDE LEVEL 105 MEQ/L (98-107); CREATININE FOR GFR 0.77 MG/DL (0.70-1.30); GLOMERULAR FILTRATION RATE > 60.0 (>60); GLUCOSE, FASTING 136 MG/DL (70-105); POTASSIUM SERUM 3.8 MEQ/L (3.5-5.1); SODIUM LEVEL 143 MEQ/L (136-145)
[2017-01-20] MEDS: HumaLOG INSULIN (NovoLOG) PER UNIT SC SCH ×4 (07:52→20:25)
[2017-01-20] MEDS: metFORMIN (GLUCOPHAGE) 500 MG TAB PO SCH ×2 (07:59→17:44)
[2017-01-20] MEDS: SERTRALINE HCL 50 MG TAB PO SCH (07:59)
[2017-01-20] MEDS: LISINOPRIL 10 MG TAB PO SCH (07:59)
[2017-01-20] MEDS: ENOXAPARIN 40 MG/0.4 ML SYRINGE (J1650) SC SCH (08:00)
[2017-01-20 10:00] VITALS: BP 141/88
--- NOTE | 2017-01-20 10:04 | RO ---
DATE OF PROCEDURE: 01/18/2017 PREPROCEDURE DIAGNOSIS: Right foot cellulitis, abscess and ulceration. POSTPROCEDURE DIAGNOSIS: Right foot cellulitis, abscess and ulceration. PROCEDURE: Right foot incision and drainage and wound debridement. SURGEON: Dr. Mg Polanco TRIPLE DRUM OPERATOR: None. ANESTHESIA: Monitored anesthesia care. Preoperative injection of 20 mL of 1:1 mixture of 1% lidocaine plain and 1/2% Marcaine plain. ESTIMATED BLOOD LOSS: Minimal. MATERIALS: None. COMPLICATIONS: None. CONDITION: Stable. Olu Lott is a 46--year-old male who has been being treated for right foot infection. He had a previous incision and drainage, but was noted to have persistent elevated white blood cell count, fevers, and erythema and necrosis to the wound with persistent purulence. Decision was made to bring him to the operating room for repeat incision and drainage. The patient side and site were identified and marked in preoperative holding area. Consent was reviewed and obtained. The risks, complications and alternatives to the procedure were explained to the patient in detail. All questions were answered. PROCEDURE: The patient was brought to the operating room and placed on the operating room in supine position. Monitored anesthesia care was provided by the anesthesia team. A preoperative injection of 20 mL of 1:1 mixture of 1% lidocaine plain and 0.25% Marcaine plain were injected to the right ankle. The patient had received his scheduled antibiotics prior to the surgery. The right foot was prepped and draped in normal sterile fashion. No tourniquet was used during the procedure. The wound sites were inspected. There was noted to be persistent purulence from the dorsal wound, more extending from the lateral aspect. An additional incision was made at the second interspace between the second and third toes. Purulence was noted here with expression. A rongeur was used to remove nonviable tissue from all incisions. Again, the capsule was inspected and no purulence appeared to be coming from the joint. After all purulence and nonviable tissue had been removed, the pulse weigher and mixer was used to rinse 3 liters of normal saline. The wound base was improved following the procedure. The patient was brought to the postanesthesia care unit (PACU) with vital signs stable and neurovascular status intact. He will be readmitted to the floor for continued antibiotics.
--- NOTE | 2017-01-20 10:49 | IPNPDOC ---
Subjective Date Seen The patient was seen on 01/20/17. Subjective Chief Complaint/HPI The patient is a 46-year-old male admitted with a reason for visit of Diabetic Infection Of Right Foot. Events since last encounter Patient reports feeling better overall. Has no current complaints. States his foot is better than has been. Is looking forward to going home. Tolerating meals. Some ambulation around the room with crutches, has not been in the oropeza yet. Constitutional: Denies: Chills, Fever Eyes: Denies: Pain, Vision change ENT: Denies: Head Aches Skin: Denies: Rash, Lesions Pulmonary: Denies: Dyspnea, Cough Cardiovascular: Denies: Chest Pain, Palpitations Gastrointestinal: Denies: Nausea, Vomiting Genitourinary: Denies: Dysuria, Frequency Hematologic: Denies: Bruising, Bleeding Excessively Neurological: Denies: Numbness, Change in speech, Confusion Psych: Reports: Mood Normal, Denies: Anxiety, Depression Objective Physical Examination General Exam: Positive: Alert, Cooperative, No Acute Distress Eye Exam: Positive: Conjunctiva & lids normal, EOMI, Negative: Sclera icteric, Ptosis ENT Exam: Positive: Atraumatic, Pharynx Normal, Nares Patent Neck Exam: Positive: Supple, Negative: JVD, thyromegaly Chest Exam: Positive: Clear to auscultation, Negative: Normal air movement Heart Exam: Positive: Rate Normal, Regular Rhythm, Normal S1, Normal S2, Negative: Tachycardic, Bradycardic Abdomen Exam: Positive: Normal bowel sounds Extremity Exam: Positive: Normal pulses (Radial pulse 2/4 bilaterally. ), Negative: Clubbing, Cyanosis, Edema Skin Exam: Positive: Nl turgor and temperature, Negative: Rash, Breakdown Neuro Exam: Positive: Normal Gait, Normal Speech Assessment /Plan Problems (1) Diabetic infection of right foot Problem Text: Appreciate assistance of Podiatry Dr. Polanco with the care of this patient. Per conversation this morning, plan is to keep patient overnight and possible discharge tomorrow. Continue antibiotics, switch IV or oral. Dr. Polanco will see the wound this afternoon (01/20/17) and talk to patient. Reorder CBC for tomorrow morning to monitor WBC. Monitor temperature for fever. Continue to encourage ambulation for patient. (2) Cellulitis of right foot Status: Acute Problem Text: Continue to monitor. Appreciate assistance by Dr. Polanco at this time. (3) Type 2 diabetes mellitus Problem Text: Continue Insulin QHS and AC at this time. Continue metformin 500 mg BID. Consistent carbohydrate diet. Monitor glucose level. Hypoglycemia protocol. (4) Depression Problem Text: Monitor clinically. Continue Zoloft 50 mg PO daily. (5) HTN (hypertension) Problem Text: Continue to monitor vitals. Continue Lisinopril 10 mg PO daily. Plan/VTE VTE Prophylaxis Ordered?: Yes (Lovenox) VS, I&O, 24H, Fishbone Vital Signs/I&O Vital Signs Date Time Temp Pulse Resp B/P (MAP) Pulse Ox O2 Delivery O2 Flow Rate FiO2 01/20/17 10:00 99.2 74 18 141/88 (105) 95 Room Air I&O- Last 24 Hours up to 6 AM 01/20/17 06:00 Intake Total 2190 ml Output Total 1000 ml Balance 1190 ml Laboratory Data 24H LABS Laboratory Tests 2 01/19/17 11:56: Bedside Glucose (Misc Panel) 198H 01/19/17 17:02: Bedside Glucose (Misc Panel) 145H 01/19/17 20:30: Bedside Glucose (Misc Panel) 112H 01/20/17 05:49: Anion Gap 9, Glomerular Filtration Rate > 60.0, Blood Urea Nitrogen 6L, Creatinine 0.77, Sodium Level 143, Potassium Level 3.8, Chloride Level 105, Carbon Dioxide Level 29, Calcium Level 8.2L, Magnesium Level 2.0, C-Reactive Protein, Quantitative 14.10H CBC/BMP Laboratory Tests 01/20/17 05:49 Red Blood Count 3.86 L, Mean Corpuscular Volume 86.7, Mean Corpuscular Hemoglobin 29.5, Mean Corpuscular Hemoglobin Concent 34.1, Red Cell Distribution Width 11.7, Calcium Level 8.2 L Microbiology Microbiology 01/18/17 Blood Culture - Preliminary, Resulted No growth after 24 hours . All specim... 01/18/17 Blood Culture - Preliminary, Resulted No growth after 24 hours . All specim... 01/12/17 Blood Culture - Final, Complete NO GROWTH AFTER 5 DAYS 01/12/17 Blood Culture - Final, Complete NO GROWTH AFTER 5 DAYS 01/12/17 Blood Culture - Final, Complete NO GROWTH AFTER 5 DAYS 01/12/17 Blood Culture - Final, Complete NO GROWTH AFTER 5 DAYS 01/15/17 Wound Culture - Final, Complete Strep Agalactiae Group B 01/15/17 Anaerobic Culture - Final, Complete 01/12/17 Gram Stain - Final, Complete 01/12/17 Wound Culture - Final, Complete Strep Agalactiae Group B Streptococcus Viridans Group GME ATTESTATION GME ATTESTATION My preceptor for this patient encounter was Dr. Leblanc and he was physically present in the building during the encounter and was fully available. As needed , all aspects of the patient interview, examination, medical decision making process, and medical care plan development were reviewed and approved by the preceptor. Preceptor is aware and concurs with the plan as stated in the body of this note and will attest to such by his/her co-signature. ATTENDING NOTE Patient is seen and examined. Agree with the plan mentioned in the resident's note. I will continue to participate in the care of the patient. ROSETTA Velasquez MD, DO Jan 20, 2017 10:49 HARLAN LEBLANC MD Jan 24, 2017 12:02
[2017-01-20 14:00] VITALS: BP 165/99
--- NOTE | 2017-01-20 16:10 | RO ---
DATE OF PROCEDURE: 01/15/2017 PREPROCEDURE DIAGNOSES: Right foot cellulitis abscess, diabetic ulceration. POSTPROCEDURE DIAGNOSES: Right foot cellulitis abscess, diabetic ulceration. PROCEDURE: Right foot incision and drainage and wound debridement. SURGEON: Mg Polanco DPM FLOAT PHLEBOTOMIST: None. ANESTHESIA: Monitored anesthesia care. Preoperative injection of 20 mL of 1:1 mixture of 1% lidocaine plain, 0.5% Marcaine plain. ESTIMATED BLOOD LOSS: Minimal. MATERIALS: None. SPECIMENS: Culture plantar foot, aerobic and anaerobic. COMPLICATIONS: None. CONDITION: Stable. HISTORY: Olu Lott is a 46-year-old male who was admitted to [facility] with right foot infection. He has been treated with antibiotics. A bedside incision and drainage was performed 2 days ago by myself. He was noted to have persisting elevated white blood cell counts, persisting fevers, and persisting redness and necrosis to the wound. Decision was made to bring him to the operating room for formal incision and drainage. The patient, side, and site were identified and marked in the preoperative holding area. Consent was reviewed and obtained. All risks, complications and alternatives to the procedure were explained to the patient in detail, and all questions were answered. DESCRIPTION OF PROCEDURE: Patient was brought to the operating room and placed on the operative table in supine position. Monitored anesthesia care was delivered by the anesthesia team. Perioperative injection of 20 mL of a 1:1 mixture of 1% lidocaine plain and 0.5% Marcaine plain were injected into the right foot. The right foot was prepped and draped in sterile fashion. A tourniquet was applied but was not used during the procedure. The plantar wound was then inspected and the previous incision and drainage site was extended with #15 blade. Hemostat was used to find tracking from the infection and this was noted to track into the interspace and up to the dorsal aspect of the foot. Separate incision was made at the first interspace dorsally. There was noted to be significant purulence at this site which extended laterally past the metatarsal heads. Initially, tracking was noted on the medial aspect of the metatarsal head. There was also purulence tracking along the plantar flexor hallucis tendon. Each of these was open with hemostat and #15 blade. Rongeur was used to remove necrotic tissue and fat. The underlying tendon appeared healthy in appearance. A small incision was made in the capsule and no purulence or necrosis was noted inside the 1st metatarsophalangeal joint. The bone was not encountered during the procedure. Using pulse irrigation, 1500 mL was irrigated to the wound sites. Additional purulence was noted dorsally, and further debridement and extension of the incision was made. Following this, an additional 1500 mL was irrigate. Following second irrigation, no further purulence was identified. The wounds were packed with saline-soaked gauze, covered with dry gauze dressing. Please note, at the beginning of the procedure, cultures, aerobic and anaerobic were taken of the plantar wounds. Patient was brought to the post-anesthesia care unit (PACU), vital signs stable, neurovascular status intact. He will be re-admitted to the floor for continued antibiotics and monitoring. Will continue to follow.
[2017-01-20] MEDS: AMPICILLIN 250 MG CAP PO SCH ×2 (17:44→23:32)
[2017-01-20 18:00] VITALS: BP 155/94
--- NOTE | 2017-01-20 18:10 | IPN ---
DATE OF ADMISSION: 01/19/2017 Patient seen and examined at bedside. Denies overnight complaints, although he did have a fever. Maximum temperature (T-max) was 102.3. Most recent temperature is down to 99.2. Labs are reviewed. White blood cell count is elevated to 10.8, up from 9.9, and C-reactive protein (CRP) is elevated to 16, up from 14.6. LOWER EXTREMITY EXAMINATION: The erythema is resolved with exception to around the incisions themselves. There is minimal necrosis in the wounds. There is no purulence noted on expression today. No malodor. ASSESSMENT: This is a 46-year-old male with diabetic foot ulceration infection, cellulitis and abscess status post incision and drainage. PLAN: Continue antibiotics. Continue dressing changes. I would like to see fevers totally resolved prior to discharge with further improvement in his labs. The wounds themselves appear to be improving. However, with the elevated temperature and blood work, there is concern for persisting abscess somewhere in the foot remains. We will have to continue to closely monitor the wounds. Further washout may be required again, if fevers do not resolve.
[2017-01-20] MEDS: ACETAMINOPHEN TAB 650MG DOSE (2X325MG) PO PRN (19:54)
[2017-01-20 22:00] VITALS: BP 144/81
[2017-01-21 06:00] VITALS: BP 141/81
[2017-01-21] MEDS: AMPICILLIN 250 MG CAP PO SCH ×2 (06:13→12:41)
[2017-01-21 07:05] LABS: MEAN CORPUSCULAR HEMOGLOBIN 29.7 pg (27.0-33.0); MEAN CORPUSCULAR HGB CONC 34.3 g/dl (32.0-36.5); MEAN CORPUSCULAR VOLUME 86.4 fl (80.0-96.0); RED CELL DISTRIBUTION WIDTH 11.7 % (11.5-14.5); WHITE BLOOD COUNT 7.4 K/mm3 (4.0-10.0)
[2017-01-21 07:32] LABS: ANION GAP 7 MEQ/L (8-16); BLOOD UREA NITROGEN 7 MG/DL (7-18); CALCIUM LEVEL 8.3 MG/DL (8.5-10.1); CARBON DIOXIDE LEVEL 30 MEQ/L (21-32); CHLORIDE LEVEL 105 MEQ/L (98-107); CREATININE FOR GFR 0.71 MG/DL (0.70-1.30); GLOMERULAR FILTRATION RATE > 60.0 (>60); GLUCOSE, FASTING 110 MG/DL (70-105); MAGNESIUM LEVEL 2.1 MG/DL (1.8-2.4); POTASSIUM SERUM 4.1 MEQ/L (3.5-5.1); SODIUM LEVEL 142 MEQ/L (136-145)
[2017-01-21] MEDS: HumaLOG INSULIN (NovoLOG) PER UNIT SC SCH ×2 (08:09→12:00)
[2017-01-21 08:54] VITALS: BP 141/81
[2017-01-21] MEDS: SERTRALINE HCL 50 MG TAB PO SCH (08:54)
[2017-01-21] MEDS: LISINOPRIL 10 MG TAB PO SCH (08:54)
[2017-01-21] MEDS: metFORMIN (GLUCOPHAGE) 500 MG TAB PO SCH (08:54)
[2017-01-21] MEDS: ENOXAPARIN 40 MG/0.4 ML SYRINGE (J1650) SC SCH (08:54)
--- NOTE | 2017-01-21 10:40 | IPN ---
DATE OF SERVICE: 01/20/2017 The patient seen and examined at bedside. Denies overnight complaints. Denies much pain in his foot. He has been afebrile over 24 hours. Maximum temperature (Tmax) 99.6. Current temperature 99.2. Laboratories are reviewed. White blood cell count is improved to 8.6. C-reactive protein (CRP) has trended down to 14.1 down from 16. LOWER EXTREMITY EXAMINATION: Erythema and edema markedly improved. There is no purulence to the wounds. No necrosis or malodor. ASSESSMENT: This is a 46-year-old male with diabetic ulceration, cellulitis, abscess, status post incision and drainage. PLAN: Okay to discharge tomorrow as long as he has been afebrile. Send home on ampicillin by mouth times 2 weeks. Continue saline wet-to-dry dressings. His mother was present in the room and will be taught how to perform this. Continued on weightbearing to the foot. He will followup in my office on Friday.
[2017-01-21] MEDS ORDERED: AMPI25CA PO (10:55)
--- NOTE | 2017-01-21 19:54 | DS.PDOC ---
Discharge Summary General Date of Admission Jan 12, 2017 at 19:48 Date of Discharge 01/21/17 Attending Physician: DULCE MARIA PATRICK MD Specialist/Consultants Involve: ALBERTA GREENBERG DPM Discharge Summary PCP: None PROCEDURES PERFORMED DURING STAY: Incision and drainage and wound debridement. ADMITTING DIAGNOSES: 1. Right diabetic foot infection 2. Sepsis secondary to right diabetic foot infection with elevated WBC 3. Type 2 diabetes, uncontrolled. DISCHARGE DIAGNOSES: 1. Right diabetic foot infection 2. Sepsis secondary to right diabetic foot infection with elevated WBC, resolved. 3. Type 2 diabetes, uncontrolled. COMPLICATIONS/CHIEF COMPLAINT: Diabetic Infection Of Right Foot. HISTORY OF PRESENT ILLNESS: Patient is a 46 year old male with past medical history of type 2 diabetes, hypertension, hyperlipemia, history of Tylenol overdose, history of severe depression presented to the ER with a 2 week history of right foot blister on the plantar aspect of the right foot's light the toe. Patient had the blister for about 2 weeks and thought it was due to his socks being too tight. Blister that opened up on Friday prior to admission, with admission currently on Friday. He had noticed that it was bloody, malodorous drainage since Friday with increasing pain not been able to work. It worsened to the point where he presents to the ER for an evaluation. Having subjective fevers and chills. Denies any nausea or vomiting and no altered mental status. Denies any weight gain or weight changes. In the ER patient was found to have a fever with temperature 100.9 and with blood cell count of 14.8. Wound on the plantar aspect of the right big toe appeared malodorous with drainage and significant erythema. Radiographs performed showed no evidence of osteomyelitis. Hospitalist service was then called for admission for right diabetic foot infection. Patient given clindamycin in the ER except early in on the surgical floor. HOSPITAL COURSE: Dyspnea hospital patient has received antibiotics. Patient had received clindamycin in the ER and sensory laying on the floor. While in the hospital patient had diabetes managed with hypoglycemic protocol and insulin with sliding scale. Metformin was held. Dr. Greenberg was consulted for the patient's wound care. Had incision and drainage and debridement performed by Dr. Greenberg. After the debridement patient still remained to have an elevated white blood cell count and elevated temperatures on occasion. Dr. marie then decided to debrided the wound again. This is to make sure there was no deeper infection and it was cleared out. Patient was then started on ampicillin. Patient continued to have wet to dry dressing changes. By January 20 patient remained afebrile for 24 hours and with blood cell count decreased normal. Wound was seen by Dr. marie for more time and was deemed eligible for discharge. Patient will follow-up with Dr. marie in outpatient setting. DISCHARGE MEDICATIONS: Please see below. ALLERGIES: Please see below. PHYSICAL EXAMINATION ON DISCHARGE: VITAL SIGNS: Please see below. GENERAL: Alert and orientated. No acute distress. HEENT: No rhinorrhea. Atraumatic. NECK: No enlarged masses or thyromegaly. CARDIOVASCULAR EXAMINATION: Normal S1 and S2 with no clicks rubs gallops or murmurs. RESPIRATORY EXAMINATION: Clear to auscultation bilaterally. ABDOMINAL EXAMINATION: Nondistended. Bowel sounds to auscultation. EXTREMITIES: Radial pulses 2 out of 4 bilaterally. Dressing noted on right foot. No drainage through dressings. SKIN: No new rashes or lesions. NEUROLOGICAL EXAMINATION: Speech intact. PSYCHIATRIC EXAMINATION: Normal affect. LABORATORY DATA: Please see below. IMAGING: Foot radiograph report noted Negative right foot. Foot MRI report noted No evidence of abscess or osteomyelitis. Cellulitis of the forefoot. chest radiograph report showed Plate-like atelectasis versus linear fibrosis left lower lobe. Otherwise no active disease. PROGNOSIS:Stable. ACTIVITY: As tolerated with crutches. Keep elevated. DIET: Consistent Carbohydrate. DISCHARGE PLAN: Discharge patient home with home care. Follow up with Dr. Greenberg Friday. Continue Ampicillin 500 mg q6h for 2 weeks. DISPOSITION: Home, Self-Care. DISCHARGE INSTRUCTIONS: 1. Discharge patient home with home care. 2. Follow up with Dr. Greenberg Friday01/24/17. 3. Continue Ampicillin 500 mg q6h for 2 weeks. ITEMS TO FOLLOWUP ON ON OUTPATIENT: 1. Establish care with primary care physician. DISCHARGE CONDITION: Stable. TIME SPENT ON DISCHARGE: Greater than 30 minutes. Vital Signs/I&Os Vital Signs Date Time Temp Pulse Resp B/P (MAP) Pulse Ox O2 Delivery O2 Flow Rate FiO2 01/21/17 08:54 141/81 01/21/17 06:00 98.6 70 20 97 01/20/17 18:00 Room Air I&O- Last 24 Hours up to 6 AM 01/21/17 05:59 Intake Total 2160 ml Output Total 0 ml Balance 2160 ml Laboratory Data Labs 24H Laboratory Tests 2 01/20/17 20:23: Bedside Glucose (Misc Panel) 144H 01/21/17 06:34: Erythrocyte Sedimentation Rate 86H, Anion Gap 7L, Glomerular Filtration Rate > 60.0, Blood Urea Nitrogen 7, Creatinine 0.71, Sodium Level 142, Potassium Level 4.1, Chloride Level 105, Carbon Dioxide Level 30, Calcium Level 8.3L, Magnesium Level 2.1, C-Reactive Protein, Quantitative 11.70H 01/21/17 11:36: Bedside Glucose (Misc Panel) 188H CBC/BMP Laboratory Tests 01/21/17 06:34 Red Blood Count 3.82 L, Mean Corpuscular Volume 86.4, Mean Corpuscular Hemoglobin 29.7, Mean Corpuscular Hemoglobin Concent 34.3, Red Cell Distribution Width 11.7, Calcium Level 8.3 L FSBS Laboratory Tests Test 01/20/17 20:23 01/21/17 11:36 Range/Units Bedside Glucose (Misc Panel) 144 188 70-105 MG/DL Microbiology Microbiology 01/18/17 Blood Culture - Preliminary, Resulted No Growth after 48 hours. All Specime... 01/18/17 Blood Culture - Preliminary, Resulted No Growth after 48 hours. All Specime... 01/12/17 Blood Culture - Final, Complete NO GROWTH AFTER 5 DAYS 01/12/17 Blood Culture - Final, Complete NO GROWTH AFTER 5 DAYS 01/12/17 Blood Culture - Final, Complete NO GROWTH AFTER 5 DAYS 01/12/17 Blood Culture - Final, Complete NO GROWTH AFTER 5 DAYS 01/15/17 Wound Culture - Final, Complete Strep Agalactiae Group B 01/15/17 Anaerobic Culture - Final, Complete 01/12/17 Gram Stain - Final, Complete 01/12/17 Wound Culture - Final, Complete Strep Agalactiae Group B Streptococcus Viridans Group Discharge Medications Scheduled Ampicillin Sod (Ampicillin) 250 Mg Cap, 500 MG PO Q6H Lisinopril (Lisinopril) 10 Mg Tab, 10 MG PO DAILY, (Reported) Metformin Hydrochloride (Glucophage) 500 Mg Tab, 500 MG PO BID, (Reported) Sertraline Hcl (Zoloft) 50 Mg Tab, 50 MG PO DAILY, (Reported) Allergies Coded Allergies: No Known Allergies (Verified Allergy, Unknown, 10/01/07) GME ATTESTATION GME ATTESTATION My preceptor for this patient encounter was Dr. Patrick and he was physically present in the building during the encounter and was fully available. As needed , all aspects of the patient interview, examination, medical decision making process, and medical care plan development were reviewed and approved by the preceptor. Preceptor is aware and concurs with the plan as stated in the body of this note and will attest to such by his/her co-signature. ROSETTA BYRD DO Jan 21, 2017 19:39
[2017-03-03] MEDS ORDERED: TYLE500T78 PO (09:34)
[2017-03-03] MEDS ORDERED: ATOR1TAB19 PO (09:34)
[2017-03-03] MEDS ORDERED: AMOX875T2 PO (09:34)
== END 2017-01-21 13:44 | disposition home or self-care (01) | DRG 720 ==
LOC: M ED 17:35 → M ED INP 19:48 → M MSPAV 21:52
PROVIDERS: ADMIT General Practice; ATTEND Internal Medicine
PROC: 0HBMXZZ Excision of Right Foot Skin, External Approach (ICD-10-PCS; principal; 2017-01-13)
PROC: 0HBMXZZ Excision of Right Foot Skin, External Approach (ICD-10-PCS; 2017-01-15)
PROC: 0HBMXZZ Excision of Right Foot Skin, External Approach (ICD-10-PCS; 2017-01-18)
DX: A41.9 Sepsis, unspecified organism (principal); E11.40 Type 2 diabetes mellitus with diabetic neuropathy, unspecified; E11.621 Type 2 diabetes mellitus with foot ulcer; E11.628 Type 2 diabetes mellitus with other skin complications; I10 Essential (primary) hypertension; E78.5 Hyperlipidemia, unspecified; Z79.899 Other long term (current) drug therapy; F32.9 Major depressive disorder, single episode, unspecified; L03.115 Cellulitis of right lower limb

== ENCOUNTER → 2017-02-12 | Outpatient (REF) | payer BC ==
[~2017-02-12] MED LIST: AMOX875T2 PO; AMPI25CA PO; ATOR1TAB19 PO; CEPH500C PO; GLUC500T PO; LISI10TA4 PO; TYLE500T78 PO; ZOLO50TA PO
== END ==
LOC: M LAB REF 10:30
PROVIDERS: ATTEND Student in an Organized Health Care Education/Training Program
DX: E11.65 Type 2 diabetes mellitus with hyperglycemia (principal)

== ENCOUNTER → 2017-02-28 | Outpatient (CLI) | payer BC ==
[2017-02-28 12:25] LABS: MEAN CORPUSCULAR HEMOGLOBIN 27.2 pg (27.0-33.0); MEAN CORPUSCULAR HGB CONC 32.5 g/dl (32.0-36.5); MEAN CORPUSCULAR VOLUME 83.6 fl (80.0-96.0); RED CELL DISTRIBUTION WIDTH 12.9 % (11.5-14.5); WHITE BLOOD COUNT 10.3 10^3/uL (4.0-10.0)
[2017-02-28 13:26] LABS: ANION GAP 6 MEQ/L (8-16); BLOOD UREA NITROGEN 30 MG/DL (7-18); CALCIUM LEVEL 9.8 MG/DL (8.5-10.1); CARBON DIOXIDE LEVEL 28 MEQ/L (21-32); CHLORIDE LEVEL 103 MEQ/L (98-107); CREATININE FOR GFR 0.86 MG/DL (0.70-1.30); GLOMERULAR FILTRATION RATE > 60.0 (>60); GLUCOSE, FASTING 130 MG/DL (70-105); SODIUM LEVEL 137 MEQ/L (136-145)
[2017-02-28 13:33] LABS: POTASSIUM SERUM 5.6 MEQ/L (3.5-5.1)
== END ==
LOC: M LAB 11:38
PROVIDERS: ATTEND Podiatrist Foot & Ankle Surgery
DX: M86.171 Other acute osteomyelitis, right ankle and foot (principal)

== ENCOUNTER 2017-03-05 10:58 | Inpatient (IN) | payer BC ==
[~2017-03-05] VITALS: Ht 167.6 cm; Wt 77.8 kg
[2017-03-05] MEDS: LISINOPRIL 10 MG TAB PO SCH ×2 (09:00→19:01)
[2017-03-05] MEDS: ATORVASTATIN 10 MG TAB PO SCH ×2 (09:00→19:00)
[~2017-03-05 10:58] MED LIST changes: -CEPH500C PO
[2017-03-05] MEDS ORDERED: LR 1,000 ML IV ONE (11:15)
[2017-03-05] MEDS ORDERED: MIDAZOLAM INJ 2 MG/2 ML VIAL (J2250) As Ordered ONE (14:05)
[2017-03-05] MEDS ORDERED: fentaNYL 100 MCG/2 ML INJECTION (J3010) As Ordered ONE (14:05)
[2017-03-05] MEDS ORDERED: LIDOCAINE 1% SDV INJ 30 ML VIAL As Ordered ONE (14:27)
[2017-03-05] MEDS ORDERED: BUPIVACAINE HCL 0.5% 30 ML VIAL As Ordered ONE (14:28)
[2017-03-05] MEDS ORDERED: PROPOFOL 200 MG/20 ML VIAL As Ordered ONE ×2 (15:26→15:27)
[2017-03-05] MEDS ORDERED: PERCOCET 5MG/325MG TAB PO PRN ×2 (16:30)
[2017-03-05] MEDS ORDERED: BISACODYL 10 MG SUPP PR PRN (16:30)
[2017-03-05] MEDS ORDERED: GLUCOSE 4 GM CHEW TABLET PO PRN (16:30)
[2017-03-05] MEDS ORDERED: GLUCAGON FOR INJ 1 MG VIAL (J1610) SC PRN (16:30)
[2017-03-05] MEDS ORDERED: METOCLOPRAMIDE INJ 10MG/2ML VIAL (J2765) IV PRN (16:30)
[2017-03-05] MEDS ORDERED: LR 1,000 ML IV SCH (16:30)
[2017-03-05] MEDS ORDERED: ONDANSETRON 4MG/2ML VIAL (J2405) IV PRN ×2 (16:30)
[2017-03-05] MEDS ORDERED: DEXTROSE 50% 50 ML SYRINGE IV PRN (16:30)
[2017-03-05] MEDS ORDERED: MORPHINE 2 MG/ML 1ML SYRINGE IV PRN ×3 (16:30→16:45)
[2017-03-05] MEDS ORDERED: ACETAMINOPHEN 500 MG TAB PO PRN (16:30)
[2017-03-05 16:46] LABS: MEAN CORPUSCULAR HEMOGLOBIN 26.7 pg (27.0-33.0); MEAN CORPUSCULAR HGB CONC 32.2 g/dl (32.0-36.5); MEAN CORPUSCULAR VOLUME 82.9 fl (80.0-96.0); RED CELL DISTRIBUTION WIDTH 13.1 % (11.5-14.5); WHITE BLOOD COUNT 5.6 10^3/uL (4.0-10.0)
[2017-03-05 17:12] LABS: ALBUMIN 2.6 GM/DL (3.2-5.2); ALBUMIN/GLOBULIN RATIO 0.72 (1.00-1.93); ALKALINE PHOSPHATASE 58 U/L (45-117); ALT/SGPT 12 U/L (12-78); ANION GAP 4 MEQ/L (8-16); AST/SGOT 6 U/L (15-37); BILIRUBIN,TOTAL 0.2 MG/DL (0.2-1.0); BLOOD UREA NITROGEN 19 MG/DL (7-18); CALCIUM LEVEL 8.7 MG/DL (8.5-10.1); CARBON DIOXIDE LEVEL 31 MEQ/L (21-32); CHLORIDE LEVEL 104 MEQ/L (98-107); CREATININE FOR GFR 0.66 MG/DL (0.70-1.30); GLOMERULAR FILTRATION RATE > 60.0 (>60); GLUCOSE, FASTING 102 MG/DL (70-105); POTASSIUM SERUM 4.8 MEQ/L (3.5-5.1); SODIUM LEVEL 139 MEQ/L (136-145); TOTAL PROTEIN 6.2 GM/DL (6.4-8.2)
--- NOTE | 2017-03-05 17:17 | REP ---
Portable chest x-ray: Single view. History: Admission postop. Foot infection. Findings: There are old healed rib fractures on the left. There is some discoid atelectasis in the left perihilar region and in the left base. Lung hernandez are otherwise clear. Heart is not enlarged. Pulmonary vasculature is not increased. Impression: Linear plate-like atelectasis in the left upper and lower lung zones. Otherwise no acute disease. Signed by Brenden Davila MD 03/06/2017 11:17 A
--- NOTE | 2017-03-05 17:18 | HPE ---
DATE OF ADMISSION: 03/05/2017 PRIMARY CARE PROVIDER: The resident clinic. QUALITATIVE FIELD PROJECT MANAGER: Dr. Polanco CHIEF COMPLAINT: Left foot osteomyelitis. HISTORY OF PRESENT ILLNESS: The patient is a 46-year-old man who follows with Dr. Polanco at the podiatric clinic, who underwent ambulatory surgery for elective amputation of his Right first metatarsal for osteomyelitis. Dr. Polanco did call me prior to the operation and informed me that he would need the patient to stay and be admitted following post-procedurally. The patient did have his procedure and tolerated it well. At the present time, he has no complaints and is otherwise in his usual state of health. PAST MEDICAL HISTORY: 1. Hypertension. 2. Diabetes. 3. Depression. 4. History of a Tylenol overdose. ALLERGIES: He has no known drug allergies. PAST SURGICAL HISTORY: 1. Appendectomy. 2. Right eye trauma. 3. Debridement of the Rt lower extremity in the past as well. HOME MEDICATIONS: - amoxicillin clavulanic acid 875 by mouth twice a day - metformin 1 gram twice a day - Extra-Strength Tylenol 1 gram every six hours as needed for pain - atorvastatin 10 mg daily - lisinopril 10 mg daily - sertraline 50 mg daily SOCIAL HISTORY: He works at [email or web address]. He denies alcohol. He is a never smoker. FAMILY HISTORY: Noncontributory. REVIEW OF SYSTEMS: Negative other than in the history of present illness (HPI). PHYSICAL EXAMINATION: Temperature is 97.7, heart rate 97, respiratory rate 18, blood pressure 122/83, oxygen saturation 97% on room air. GENERAL: He is a pleasant, middle-aged, man, mildly disheveled, laying flat in bed with his left leg elevated. He does not appear to be in any acute distress. He does have a drain in place. NEUROLOGIC: Cranial nerves II-XII are grossly intact. HEENT: He has moist mucous membranes. No elevation of central venous pressure (CVP). CARDIOVASCULAR EXAMINATION: S1, S2, regular. RESPIRATORY EXAMINATION: Clear. ABDOMINAL EXAMINATION: Benign. EXTREMITIES: Left lower extremity is COLBY wrapped and elevated. There is a drain in place draining serosanguineous fluid. LABORATORY STUDIES: No laboratories from today other than a potassium level of 4.4. No imaging. MICROBIOLOGY: He has a group B Streptococcus positive from 02/15/2017, insensitive to penicillin but sensitive to ampicillin and third generation cephalosporins. ASSESSMENT AND PLAN: This is a 46-year-old man with left foot osteomyelitis status post an elective amputation. PROBLEM LIST: 1. Rt foot osteomyelitis, status post amputation. Postoperative x-rays have been ordered by Dr. Polanco. I will have a discussion with pharmacy to see as per Dr. Polanco's order, the patient is on Ancef to see if this will be adequate given the patient's culture data. If not, I would favor third generation cephalosporin. We will discuss further with pharmacy. At this time, we will check a complete blood count (CBC), comprehensive metabolic panel (CMP), erythrocyte sedimentation rate (ESR), C-reactive protein (CRP), blood cultures. He is to be nonweightbearing on the left. His drain is in place. Dr. Polanco sees him potentially being able to return home as early as potentially Friday. I suspect that he will likely benefit from working with physical therapy once he is able to. He tolerated the procedure well. He is postoperative day zero. 2. Diabetes. We will hold his metformin and place him on sliding scale insulin and fingersticks while in the hospital. We will check a hemoglobin A1c. He will be on a consistent-carbohydrate, two-gram sodium diet. 3. Dyslipidemia. Continue with statin. 4. Depression. Continue with sertraline. 5. Deep vein thrombosis (DVT) prophylaxis. He will be on Lovenox. DISPOSITION: The patient is admitted to the medical/surgical floor to Dr. Woods' s service who will continue following the patient at 7:00 a.m. 5. Hypertension. Continue with lisinopril with holding parameters. MTDD
[2017-03-05 17:30] VITALS: BP 124/84
[2017-03-05] MEDS: HumaLOG INSULIN (NovoLOG) PER UNIT SC SCH ×2 (17:30→21:00)
[2017-03-05 18:00] VITALS: BP 125/86
[2017-03-05 19:00] VITALS: BP 122/83
[2017-03-05] MEDS: SERTRALINE HCL 50 MG TAB PO SCH (19:01)
[2017-03-05 20:00] VITALS: BP 119/82
[2017-03-05] MEDS: SENOKOT S TAB PO SCH (20:55)
[2017-03-05] MEDS: cefTRIAXone SOD 1 GM in D5W 50 ML IV SCH (20:55)
[2017-03-05] MEDS: PERCOCET 5MG/325MG TAB PO PRN (20:56)
[2017-03-05 21:00] VITALS: BP 122/88
[2017-03-05 22:00] VITALS: BP 120/82
[2017-03-06 02:00] VITALS: BP 106/70
[2017-03-06] MEDS: PERCOCET 5MG/325MG TAB PO PRN ×4 (02:32→21:01)
[2017-03-06 06:00] VITALS: BP 105/69
--- NOTE | 2017-03-06 06:38 | RO ---
DATE OF PROCEDURE: 03/05/2017 PREPROCEDURE DIAGNOSIS: Right first metatarsal osteomyelitis with ulceration. POSTPROCEDURE DIAGNOSIS: Right first and second metatarsal osteomyelitis. PROCEDURE: Right partial 1st metatarsal amputation and 2nd toe amputation with flap closure SURGEON: Dr. Mg Polanco DEAN OF GRADUATE STUDIES: None. ANESTHESIA: Monitored anesthesia care. Preoperative injection of 20 mL of 1:1 mixture of 1% lidocaine plain and 1/2% Marcaine plain. ESTIMATED BLOOD LOSS: Minimal. MATERIALS: #3-0 nylon. DRAINS: TLS drain. COMPLICATIONS: None. CONDITION: Stable. SPECIMEN: Right hallux and second toe amputation and first and second metatarsals. DESCRIPTION OF PROCEDURE: Olu Lott is a 46-year-old male who presents today with ulceration and osteomyelitis to his foot. He had been admitted last month with this problem. He had undergone multiple incision and drainages with initial improvement in the wound. However, over the next two weeks, the ulceration has progressed with necrotic bone noted directly within the wound. An x-ray revealed erosion of the first metatarsal head and second metatarsal head. Decision was made to bring him to the operating room for amputation. The patient site and side were identified and marked in preoperative holding area. Consent was reviewed and obtained. The risks, complications and alternatives to the procedure were explained to the patient in detail. Questions were answered. The patient was brought to the operating room and placed on the operating room in supine position. Monitored anesthesia care was delivered by the anesthesia team. Preoperative injection of 20 mL of 1:1 mixture of 1% lidocaine plain and 0.50% Marcaine plain were injected to the foot. The right foot was prepped and draped in normal sterile fashion. A tourniquet was applied at the right ankle and inflated at 225 mmHg. The ulceration was noted to be in the first inner space as well as the medial aspect of the first metatarsal head bone was noted to be extruding from this wound. An incision was made surrounding the wound leaving the dorsal skin from the hallux intact. This was carried through with full thickness with #10 blade. The bone of the first metatarsal head was known to have fractured off due to the infection. Inspection at the second metatarsal head revealed the same fracturing of the second metatarsal head. These were excised in total along with the hallux and second toe. A sagittal saw was used to resect the first metatarsal head back until clean bone was noted. The distal portion of the bone was silvestre and necrotic. The proximal portion appeared firm without obvious signs of necrosis. The second metatarsal head was similarly resected until good bleeding bone was noted. All nonviable tissue was debrided. The site was irrigated with copious amounts of saline. No further necrotic tissue or bone was identified. Bovie was used to maintain hemostasis. Following this, flap closure was performed using the skin from the dorsal hallux to rearrange for wound closure. This was closed over a TLS drain using #3-0 nylon. Sterile dressings were applied. The tourniquet was deflated. The patient was brought to the postanesthesia care unit (PACU) with vital signs stable and neurovascular status intact. He will be non weight bearing. He will be admitted to the hospitalist service for antibiotics and for postoperative management. Will continue to follow this. SURESH
[2017-03-06 07:38] LABS: ALBUMIN 2.5 GM/DL (3.2-5.2); ALBUMIN/GLOBULIN RATIO 0.58 (1.00-1.93); ALKALINE PHOSPHATASE 57 U/L (45-117); ALT/SGPT 14 U/L (12-78); ANION GAP 4 MEQ/L (8-16); AST/SGOT 9 U/L (15-37); BILIRUBIN,TOTAL 0.3 MG/DL (0.2-1.0); BLOOD UREA NITROGEN 16 MG/DL (7-18); CALCIUM LEVEL 8.5 MG/DL (8.5-10.1); CARBON DIOXIDE LEVEL 31 MEQ/L (21-32); CHLORIDE LEVEL 104 MEQ/L (98-107); CREATININE FOR GFR 0.72 MG/DL (0.70-1.30); GLOMERULAR FILTRATION RATE > 60.0 (>60); GLUCOSE, FASTING 121 MG/DL (70-105); POTASSIUM SERUM 4.4 MEQ/L (3.5-5.1); SODIUM LEVEL 139 MEQ/L (136-145); TOTAL PROTEIN 6.8 GM/DL (6.4-8.2)
[2017-03-06] MEDS: SENOKOT S TAB PO SCH ×2 (08:43→21:01)
[2017-03-06] MEDS: LISINOPRIL 10 MG TAB PO SCH (08:44)
[2017-03-06] MEDS: ATORVASTATIN 10 MG TAB PO SCH (08:44)
[2017-03-06] MEDS: HumaLOG INSULIN (NovoLOG) PER UNIT SC SCH ×4 (08:45→21:00)
[2017-03-06] MEDS: SERTRALINE HCL 50 MG TAB PO SCH (08:45)
[2017-03-06] MEDS: ENOXAPARIN 40 MG/0.4 ML SYRINGE (J1650) SC SCH (08:48)
--- NOTE | 2017-03-06 12:29 | IPN ---
DATE: 03/06/2017 The patient seen and examined at bedside. Denies overnight complaints. States pain control with oral Percocet. Denies fever, nausea, vomiting, or chills. Labs are reviewed. CRP is 9.62. ESR is 106. The TLS drain put out 40 mL of blood yesterday. Lower Extremity Examination: Dressing clean, dry and intact. This is a 46-year-old male with partial first ray amputation, second toe amputation, with flap closure. Plan: Continue current antibiotics. He will ultimately be discharged on oral antibiotics. He is to remain non-weight bearing to the left foot. Will plan on dressing change tomorrow. If all is well, could consider discharge tomorrow afternoon.
[2017-03-06 14:00] VITALS: BP 114/75
--- NOTE | 2017-03-06 14:48 | IPNPDOC ---
Subjective Date Seen The patient was seen on 03/06/17. Subjective Chief Complaint/HPI Patient seen and examined at the bedside. He states that his pain is relatively well controlled following surgery. He denies any acute complaints at this time. Objective Physical Examination General Exam: Positive: Alert, Cooperative, No Acute Distress ENT Exam: Positive: Atraumatic, Mucous membr. moist/pink Neck Exam: Negative: JVD Chest Exam: Positive: Clear to auscultation, Normal air movement Heart Exam: Positive: Rate Normal, Normal S1, Normal S2 Abdomen Exam: Positive: Soft, Negative: Tenderness Extremity Exam: Positive: Other (right foot noted to be wrapped in surgical dressing.) Psych Exam: Positive: Oriented x 3 Assessment /Plan Plan/VTE VTE Prophylaxis Ordered?: Yes Plan Right First and Second Metatarsal Osteomyelitis s/p Amputation Patient has remained afebrile with a normal WBC Blood Cultures pending Currently on Rocephin We will likely transition the patient to PO Abx at the discretion of Podiatry tomorrow and consider D/C Diabetes Mellitus HgbA1c of 7.6 noted Cont ISS Dyslipidemia Continue statin Depression Continue sertraline Hypertension Continue lisinopril DVT prophylaxis Lovenox SC Dispo--Anticipate D/C in 24 hrs. VS, I&O, 24H, Fishbone Vital Signs/I&O Vital Signs Date Time Temp Pulse Resp B/P (MAP) Pulse Ox O2 Delivery O2 Flow Rate FiO2 03/06/17 14:39 18 03/06/17 08:59 Room Air 03/06/17 08:44 105/69 03/06/17 06:00 98.3 88 97 I&O- Last 24 Hours up to 6 AM 03/07/17 06:00 Output Total 40 ml Balance -40 ml Laboratory Data 24H LABS Laboratory Tests 2 03/05/17 16:14: Bedside Glucose (Misc Panel) 102 03/05/17 16:25: Erythrocyte Sedimentation Rate 89H, Anion Gap 4L, Glomerular Filtration Rate > 60.0, Estimated Mean Plasma Glucose 171H, Hemoglobin A1c 7.6H, Blood Urea Nitrogen 19H, Creatinine 0.66L, Sodium Level 139, Potassium Level 4.8, Chloride Level 104, Carbon Dioxide Level 31, Calcium Level 8.7, Aspartate Amino Transf ( AST/SGOT) 6L, Alanine Aminotransferase (ALT/SGPT) 12, Alkaline Phosphatase 58, Total Bilirubin 0.2, Total Protein 6.2L, Albumin 2.6L, C-Reactive Protein, Quantitative 8.59H, Albumin/Globulin Ratio 0.72L 03/05/17 18:48: Bedside Glucose (Misc Panel) 113H 03/05/17 20:39: Bedside Glucose (Misc Panel) 202H 03/06/17 06:55: Erythrocyte Sedimentation Rate 106H, Anion Gap 4L, Glomerular Filtration Rate > 60.0, Blood Urea Nitrogen 16, Creatinine 0.72, Sodium Level 139, Potassium Level 4.4, Chloride Level 104, Carbon Dioxide Level 31, Calcium Level 8.5, Aspartate Amino Transf (AST/SGOT) 9L, Alanine Aminotransferase (ALT/SGPT) 14, Alkaline Phosphatase 57, Total Bilirubin 0.3, Total Protein 6.8, Albumin 2.5L, C -Reactive Protein, Quantitative 9.62H, Albumin/Globulin Ratio 0.58L 03/06/17 11:54: Bedside Glucose (Misc Panel) 150H CBC/BMP Laboratory Tests 03/05/17 16:25 Red Blood Count 3.75 L, Mean Corpuscular Volume 82.9, Mean Corpuscular Hemoglobin 26.7 L, Mean Corpuscular Hemoglobin Concent 32.2, Red Cell Distribution Width 13.1, Calcium Level 8.7, Aspartate Amino Transf (AST/SGOT) 6 L, Alanine Aminotransferase (ALT/SGPT) 12, Alkaline Phosphatase 58, Total Bilirubin 0.2, Total Protein 6.2 L, Albumin 2.6 L 03/06/17 06:55 Calcium Level 8.5, Aspartate Amino Transf (AST/SGOT) 9 L, Alanine Aminotransferase (ALT/SGPT) 14, Alkaline Phosphatase 57, Total Bilirubin 0.3, Total Protein 6.8, Albumin 2.5 L Microbiology Microbiology 03/05/17 Blood Culture, Received Pending 03/05/17 Blood Culture, Received Pending EMILIE KUNZ MD Mar 06, 2017 14:48
[2017-03-06] MEDS: cefTRIAXone SOD 1 GM in D5W 50 ML IV SCH (21:00)
[2017-03-06 22:00] VITALS: BP 111/69
[2017-03-07] MEDS: PERCOCET 5MG/325MG TAB PO PRN ×3 (04:26→21:23)
[2017-03-07 07:33] LABS: ALBUMIN 2.4 GM/DL (3.2-5.2); ALBUMIN/GLOBULIN RATIO 0.53 (1.00-1.93); ALKALINE PHOSPHATASE 56 U/L (45-117); ALT/SGPT 11 U/L (12-78); ANION GAP 6 MEQ/L (8-16); AST/SGOT 6 U/L (15-37); BILIRUBIN,TOTAL 0.3 MG/DL (0.2-1.0); BLOOD UREA NITROGEN 13 MG/DL (7-18); CALCIUM LEVEL 8.5 MG/DL (8.5-10.1); CARBON DIOXIDE LEVEL 29 MEQ/L (21-32); CHLORIDE LEVEL 103 MEQ/L (98-107); CREATININE FOR GFR 0.72 MG/DL (0.70-1.30); GLOMERULAR FILTRATION RATE > 60.0 (>60); GLUCOSE, FASTING 119 MG/DL (70-105); POTASSIUM SERUM 4.2 MEQ/L (3.5-5.1); SODIUM LEVEL 138 MEQ/L (136-145); TOTAL PROTEIN 6.9 GM/DL (6.4-8.2)
[2017-03-07] MEDS: ENOXAPARIN 40 MG/0.4 ML SYRINGE (J1650) SC SCH (08:38)
[2017-03-07] MEDS: HumaLOG INSULIN (NovoLOG) PER UNIT SC SCH ×4 (08:39→21:00)
[2017-03-07] MEDS: ATORVASTATIN 10 MG TAB PO SCH (08:39)
[2017-03-07] MEDS: SERTRALINE HCL 50 MG TAB PO SCH (08:39)
[2017-03-07] MEDS: SENOKOT S TAB PO SCH ×2 (08:39→21:21)
[2017-03-07] MEDS: LISINOPRIL 10 MG TAB PO SCH (08:39)
[2017-03-07 11:30] VITALS: BP 117/80
[2017-03-07] MEDS: CEPHALEXIN 500 MG CAP PO SCH ×2 (12:28→17:42)
--- NOTE | 2017-03-07 12:51 | IPN ---
DATE: 03/07/2017 Patient is seen and examined at bedside. He notes he did have a low grade fever last night. Denies other complaints. States his pain has been improving. Vitals are reviewed. T-max was 100.8 at 10:00 p.m. last night. He was also mildly tachycardic at 103. As of this morning, the fever has resolved. Labs are reviewed. ESR remains elevated, is above 140. CRP has been trending upwards as well at 13.9. White blood cell count last checked was 5.6 as of 03/05/2017. Pathology results are pending. Lower Extremity Examination: There is no erythema or edema to the foot. The flap site is inspected and noticed to have good capillary refill time on the edges. There has been minimal drainage in the drain tube, less than 4 mL over the past 24 hours. The drain was removed. No signs of wound dehiscence. No signs of necrosis or skin breakdown. ASSESSMENT: 46-year-old male with right foot osteomyelitis status post right partial first ray and second toe amputation with flap closure. PLAN: Switch patient to oral antibiotics, Keflex 500 mg four times daily. Will plan to discharge him on this for at least two weeks, most likely a full month. Dressing was reapplied. Will plan to discharge from hospital after he has been fever free for 24 hours.
[2017-03-07 14:00] VITALS: BP 128/86
--- NOTE | 2017-03-07 14:53 | IPNPDOC ---
Subjective Date Seen The patient was seen on 03/07/17. Subjective Chief Complaint/HPI Patient seen and examined at the bedside. States that he did have 1 episode of a fever last night, but notes that he is otherwise been feeling well and denies any other acute complaints. Objective Physical Examination General Exam: Positive: Alert, Cooperative, No Acute Distress ENT Exam: Positive: Atraumatic, Mucous membr. moist/pink Neck Exam: Negative: JVD Chest Exam: Positive: Clear to auscultation, Normal air movement Heart Exam: Positive: Rate Normal, Normal S1, Normal S2 Abdomen Exam: Positive: Soft, Negative: Tenderness Extremity Exam: Positive: Other (right foot noted to be wrapped in surgical dressing.) Psych Exam: Positive: Oriented x 3 Assessment /Plan Plan/VTE VTE Prophylaxis Ordered?: Yes Plan Right First and Second Metatarsal Osteomyelitis s/p Amputation Patient did have one episode of fever last night Blood Cultures unrevealing thus far Patient transitioned to PO Keflex 500mg q6h, which we will continue the patient on for atleast two weeks. Diabetes Mellitus HgbA1c of 7.6 noted Cont ISS Dyslipidemia Continue statin Depression Continue sertraline Hypertension Continue lisinopril DVT prophylaxis Lovenox SC Dispo--Anticipate D/C in 24 hrs pending that the patient remains afebrile. VS, I&O, 24H, [facility] Vital Signs/I&O Vital Signs Date Time Temp Pulse Resp B/P (MAP) Pulse Ox O2 Delivery O2 Flow Rate FiO2 03/07/17 14:41 18 03/07/17 11:30 97.8 87 117/80 (92) 95 Room Air I&O- Last 24 Hours up to 6 AM 03/08/17 05:59 Intake Total 0 ml Output Total 700 ml Balance -700 ml Laboratory Data 24H LABS Laboratory Tests 2 03/06/17 16:59: Bedside Glucose (Misc Panel) 124H 03/06/17 20:57: Bedside Glucose (Misc Panel) 140H 03/07/17 06:44: Erythrocyte Sedimentation Rate > 140H, Anion Gap 6L, Glomerular Filtration Rate > 60.0, Blood Urea Nitrogen 13, Creatinine 0.72, Sodium Level 138, Potassium Level 4.2, Chloride Level 103, Carbon Dioxide Level 29, Calcium Level 8.5, Aspartate Amino Transf (AST/SGOT) 6L, Alanine Aminotransferase (ALT/SGPT) 11L, Alkaline Phosphatase 56, Total Bilirubin 0.3, Total Protein 6.9, Albumin 2.4L, C -Reactive Protein, Quantitative 13.90H, Albumin/Globulin Ratio 0.53L 03/07/17 11:49: Bedside Glucose (Misc Panel) 181H CBC/BMP Laboratory Tests 03/07/17 06:44 Calcium Level 8.5, Aspartate Amino Transf (AST/SGOT) 6 L, Alanine Aminotransferase (ALT/SGPT) 11 L, Alkaline Phosphatase 56, Total Bilirubin 0.3, Total Protein 6.9, Albumin 2.4 L Microbiology Microbiology 03/05/17 Blood Culture - Preliminary, Resulted No growth after 24 hours . All specim... 03/05/17 Blood Culture - Preliminary, Resulted No growth after 24 hours . All specim... EMILIE KUNZ MD Mar 07, 2017 14:53
[2017-03-07 22:00] VITALS: BP 116/78
[2017-03-08] MEDS: CEPHALEXIN 500 MG CAP PO SCH ×3 (00:07→13:42)
[2017-03-08 06:00] VITALS: BP 121/80
[2017-03-08 06:54] LABS: ALBUMIN 2.5 GM/DL (3.2-5.2); ALBUMIN/GLOBULIN RATIO 0.66 (1.00-1.93); ALKALINE PHOSPHATASE 61 U/L (45-117); ALT/SGPT 11 U/L (12-78); ANION GAP 7 MEQ/L (8-16); AST/SGOT 7 U/L (15-37); BILIRUBIN,TOTAL 0.3 MG/DL (0.2-1.0); BLOOD UREA NITROGEN 12 MG/DL (7-18); CALCIUM LEVEL 8.2 MG/DL (8.5-10.1); CARBON DIOXIDE LEVEL 29 MEQ/L (21-32); CHLORIDE LEVEL 104 MEQ/L (98-107); CREATININE FOR GFR 0.61 MG/DL (0.70-1.30); GLOMERULAR FILTRATION RATE > 60.0 (>60); GLUCOSE, FASTING 96 MG/DL (70-105); POTASSIUM SERUM 4.2 MEQ/L (3.5-5.1); SODIUM LEVEL 140 MEQ/L (136-145); TOTAL PROTEIN 6.3 GM/DL (6.4-8.2)
[2017-03-08] MEDS: HumaLOG INSULIN (NovoLOG) PER UNIT SC SCH ×2 (07:30→12:00)
[2017-03-08] MEDS: ENOXAPARIN 40 MG/0.4 ML SYRINGE (J1650) SC SCH (09:00)
[2017-03-08] MEDS: SENOKOT S TAB PO SCH (09:00)
[2017-03-08] MEDS ORDERED: CEPH500C PO (09:45)
[2017-03-08] MEDS: PERCOCET 5MG/325MG TAB PO PRN (10:50)
[2017-03-08 10:51] VITALS: BP 121/80
[2017-03-08] MEDS: LISINOPRIL 10 MG TAB PO SCH (10:51)
[2017-03-08] MEDS: ATORVASTATIN 10 MG TAB PO SCH (10:51)
[2017-03-08] MEDS: SERTRALINE HCL 50 MG TAB PO SCH (10:51)
--- NOTE | 2017-03-09 11:34 | DS.PDOC ---
Discharge Summary General Date of Admission Mar 05, 2017 at 17:57 Date of Discharge 03/09/17 Specialist/Consultants Involve: ALBERTA POLANCO DPM Discharge Summary PROCEDURES PERFORMED DURING STAY: Right First and Second Metatarsal Osteomyelitis s/p Amputation ADMITTING/DISCHARGE DIAGNOSES: 1. . Right First and Second Metatarsal Osteomyelitis s/p Amputation 2. . Diabetes mellitus 3. . Attention COMPLICATIONS/CHIEF COMPLAINT: Osteomyelitis Right Foot. HISTORY OF PRESENT ILLNESS: . 46-year-old male with past medical history of hypertension, diabetes, and depression who follows with Dr. Polanco at the podiatry clinic was sent to the ER for an elective amputation of his right first metatarsal and second metatarsal for osteomyelitis. Prior to the procedure, the patient denied any complaints of fevers, chills, chest pain, shortness breath, dumping, or any nausea/vomiting/ diarrhea. During hospitalization, the patient did have successful amputation of the aforementioned right first and second metatarsals. The patient tolerated the procedure without any competitions. The patient was subsequently transitioned from IV antibiotic to by mouth. The patient's blood cultures were noted to be negative. The patient was seen here by the sprinkler tender, and cleared to return home. At this time, the patient has been advised to follow-up with podiatry as scheduled. In addition, the patient has been recommended to follow-up with his PCP within 3-7 days. The patient has been advised to return to the ER for any acute emergencies. DISCHARGE MEDICATIONS: Please see below. ALLERGIES: Please see below. PHYSICAL EXAMINATION ON DISCHARGE: VITAL SIGNS: Please see below. General Exam: Positive: Alert, Cooperative, No Acute Distress ENT Exam: Positive: Atraumatic, Mucous membr. moist/pink Neck Exam: Negative: JVD Chest Exam: Positive: Clear to auscultation, Normal air movement Heart Exam: Positive: Rate Normal, Normal S1, Normal S2 Abdomen Exam: Positive: Soft, Negative: Tenderness Extremity Exam: Positive: Other (right foot noted to be wrapped in surgical dressing.) Psych Exam: Positive: Oriented x 3 LABORATORY DATA: Please see below. IMAGING: Portable chest x-ray: Single view. History: Admission postop. Foot infection. Findings: There are old healed rib fractures on the left. There is some discoid atelectasis in the left perihilar region and in the left base. Lung hernandez are otherwise clear. Heart is not enlarged. Pulmonary vasculature is not increased. Impression: Linear plate-like atelectasis in the left upper and lower lung zones. Otherwise no acute disease. PROGNOSIS: Fair ACTIVITY: As tolerated. DIET: . 2 g low sodium, carb consistent diet DISCHARGE PLAN: DISPOSITION: 01 Home, Self-Care. DISCHARGE INSTRUCTIONS: 1. . Follow-up with podiatry as scheduled 2. . Follow-up with PCP within 3-7 days 3. . Complete course of antibiotics ITEMS TO FOLLOWUP ON ON OUTPATIENT: 1. . Return to the ER for any acute emergencies DISCHARGE CONDITION: Stable. TIME SPENT ON DISCHARGE: Greater than 30 minutes. Vital Signs/I&Os Vital Signs Date Time Temp Pulse Resp B/P (MAP) Pulse Ox O2 Delivery O2 Flow Rate FiO2 03/08/17 11:51 18 Room Air 03/08/17 10:51 121/80 03/08/17 06:00 97.7 71 96 Laboratory Data Labs 24H Laboratory Tests 2 03/08/17 12:08: Bedside Glucose (Misc Panel) 193H FSBS Laboratory Tests Test 03/08/17 12:08 Range/Units Bedside Glucose (Misc Panel) 193 70-105 MG/DL Microbiology Microbiology 03/05/17 Blood Culture - Preliminary, Resulted No Growth after 72 hours. All specime... 03/05/17 Blood Culture - Preliminary, Resulted No Growth after 72 hours. All specime... Discharge Medications Scheduled Atorvastatin Calcium (Atorvastatin Calcium) 10 Mg Tab, 10 MG PO DAILY, (Reported ) Cephalexin Monohydrate (Cephalexin) 500 Mg Cap, 500 MG PO Q6H Lisinopril (Lisinopril) 10 Mg Tab, 10 MG PO DAILY, (Reported) Metformin Hydrochloride (Glucophage) 500 Mg Tab, 1,000 MG PO BID, (Reported) Sertraline Hcl (Zoloft) 50 Mg Tab, 50 MG PO DAILY, (Reported) Scheduled PRN Acetaminophen (Tylenol Extra Strength) 500 Mg Tab, 1,000 MG PO Q6HP PRN for PAIN , (Reported) Allergies Coded Allergies: No Known Allergies (Verified , 03/05/17) EMILIE KUNZ MD Mar 09, 2017 11:34
== END 2017-03-08 14:20 | disposition home or self-care (01) | DRG 314 ==
LOC: M SDC 10:58 → M MS5PR 17:57
PROVIDERS: ADMIT Podiatrist Foot & Ankle Surgery; ATTEND Podiatrist Foot & Ankle Surgery
PROC: 0Y6R0Z1 Detachment at Right 2nd Toe, High, Open Approach (ICD-10-PCS; 2017-03-05)
PROC: 0Y6P0Z1 Detachment at Right 1st Toe, High, Open Approach (ICD-10-PCS; principal; 2017-03-05 12:40)
DX: E11.69 Type 2 diabetes mellitus with other specified complication (principal); M86.171 Other acute osteomyelitis, right ankle and foot; I10 Essential (primary) hypertension; E78.5 Hyperlipidemia, unspecified; F32.9 Major depressive disorder, single episode, unspecified; Z79.84 Long term (current) use of oral hypoglycemic drugs; Z79.899 Other long term (current) drug therapy

== ENCOUNTER → 2017-04-17 | Outpatient (CLI) | payer BC ==
[~2017-04-17] MED LIST changes: +CEPH500C PO
== END ==
LOC: M LAB 12:04
PROVIDERS: ATTEND Student in an Organized Health Care Education/Training Program
DX: Z28.21 Immunization not carried out because of patient refusal (principal)

== ENCOUNTER → 2018-04-08 | Outpatient (REF) | payer BC | LOC: M SFHCPLAZ 13:34 | DX: L03.115 Cellulitis of right lower limb (principal) ==

== ENCOUNTER → 2019-01-24 | Outpatient (REF) | payer OTHER | LOC: M SFHCPLAZ 15:55 | PROVIDERS: ATTEND Family Medicine | DX: M79.89 Other specified soft tissue disorders (principal) ==

== ENCOUNTER → 2019-02-05 | Outpatient (REF) | payer OTHER, SELFPAY ==
[2019-02-05 12:50] LABS: BASO % 0.7 % (0.0-1.0); EOS # 0.6 10^3/uL (0.0-0.5); EOS % 10.1 % (0.0-3.0); HEMATOCRIT 43.8 % (42.0-52.0); HEMOGLOBIN 14.5 g/dl (13.5-17.5); LYMPH # 1.3 10^3/uL (1.5-5.0); LYMPH % 21.8 % (24.0-44.0); MEAN CORPUSCULAR HEMOGLOBIN 30.1 pg (27.0-33.0); MEAN CORPUSCULAR HGB CONC 33.1 g/dl (32.0-36.5); MEAN CORPUSCULAR VOLUME 91.1 fl (80.0-96.0); MONO # 0.6 10^3/uL (0.0-0.8); MONO % 10.6 % (0.0-5.0); NEUTROPHILS # 3.4 10^3/uL (1.5-8.5); NEUTROPHILS % 56.5 % (36.0-66.0); PLATELET COUNT, AUTOMATED 246 10^3/uL (150-450); RED BLOOD COUNT 4.81 10^6/uL (4.30-6.10); WHITE BLOOD COUNT 5.9 10^3/uL (4.0-10.0)
[2019-02-05 13:11] LABS: ERYTHROCYTE SEDIMENTATION RATE 8 mm/hr (0-15)
[2019-02-05 13:23] LABS: CHOLESTEROL RISK RATIO 3.534 (<5)
[2019-02-05 13:25] LABS: BLOOD UREA NITROGEN 16 MG/DL (7-18); CALCIUM LEVEL 9.6 MG/DL (8.5-10.1); CARBON DIOXIDE LEVEL 27 MEQ/L (21-32); CHLORIDE LEVEL 105 MEQ/L (98-107); CREATININE FOR GFR 1.02 MG/DL (0.70-1.30); GLOMERULAR FILTRATION RATE > 60.0 (>60); GLUCOSE, FASTING 136 MG/DL (70-100); POTASSIUM SERUM 5.5 MEQ/L (3.5-5.1); SODIUM LEVEL 140 MEQ/L (136-145); URIC ACID 4.1 MG/DL (3.5-7.2)
[2019-02-05 14:13] LABS: HEMOGLOBIN A1c 7.3 %
== END ==
LOC: M SFHCPLAZ 08:58
PROVIDERS: ATTEND Family Medicine
DX: E11.65 Type 2 diabetes mellitus with hyperglycemia (principal)

== ENCOUNTER → 2019-02-11 | Outpatient (CLI) | payer OTHER, SELFPAY ==
--- NOTE | 2019-02-11 18:23 | REP ---
Left ankle series: Four views: History: Swelling of the left foot and ankle. Findings: Four views of the left ankle demonstrate diffuse medial and lateral and anterior soft tissue swelling. There is extensive vascular calcification. Soft tissue swelling is seen over the dorsum of the midfoot. There appears to be a midfoot subluxation and flattening of the tarsal arch consistent with neuropathic arthropathy. There is tibiotalar spurring. Ankle mortise is intact. Impression: Tibiotalar spurring. Extensive vascular calcification. Midfoot arthropathy and subluxation. Electronically Signed by Brenden Davila MD 02/11/2019 07:28 P
--- NOTE | 2019-02-11 18:28 | REP ---
Left foot series: Four views: History: Swelling. Diabetes. Findings: Four views of the left foot demonstrate flattening of the tarsal arch. There is a fracture subluxation of the Lisfranc joint with fragmentation and fracturing of the medial cuneiform. There is hypertrophic bone formation and some early callus at the proximal first metatarsal and first metatarsal tarsal articulation. Extensive vascular calcification is seen. There is associated soft-tissue swelling. Impression: The findings are compatible with advanced neuropathic arthropathy with midfoot Lisfranc fracture subluxation. Findings appear to be chronic or subacute. Electronically Signed by Brenden Davila MD 02/11/2019 07:29 P
== END ==
LOC: M LRY 17:23
PROVIDERS: ATTEND Student in an Organized Health Care Education/Training Program
DX: M19.072 Primary osteoarthritis, left ankle and foot (principal)

== ENCOUNTER → 2019-02-12 | Outpatient (REF) | payer OTHER, SELFPAY ==
[2019-02-12 12:41] LABS: BLOOD UREA NITROGEN 15 MG/DL (7-18); CALCIUM LEVEL 9.8 MG/DL (8.5-10.1); CARBON DIOXIDE LEVEL 28 MEQ/L (21-32); CHLORIDE LEVEL 106 MEQ/L (98-107); CREATININE FOR GFR 1.04 MG/DL (0.70-1.30); GLOMERULAR FILTRATION RATE > 60.0 (>60); GLUCOSE, FASTING 130 MG/DL (70-100); POTASSIUM SERUM 4.4 MEQ/L (3.5-5.1); SODIUM LEVEL 141 MEQ/L (136-145)
== END ==
LOC: M SFHCPLAZ 10:15
PROVIDERS: ATTEND Family Medicine
DX: E87.5 Hyperkalemia (principal)

== ENCOUNTER → 2019-02-15 | Outpatient (CLI) | payer SELFPAY ==
--- NOTE | 2019-02-15 08:34 | REP ---
CT of the left foot: The study is performed without IV contrast. Comparison is the plain film study dated 02/11/2019. Axial images are acquired helical scanning and a reformatted sagittal and coronal projections. The base of the second digit metatarsal is dislocated laterally and superiorly in relation to the second cuneiform. There are tiny fracture fragments at the base of the second digit metatarsal. The third digit metatarsal appears normally aligned with the third cuneiform. There is lateral dislocation of the bases of the fourth and fifth metatarsals in relation to the cuboid ossicle. There is a fracture at the base of the fourth digit metatarsal. There are multiple tiny fracture fragments at the tarsal/metatarsal junction. There is diffuse soft tissue edema. Impression: Lisfranc fracture dislocation as described. Electronically Signed by Dudley Starr MD 02/15/2019 08:26 A
== END ==
LOC: M RAD 06:54
PROVIDERS: ATTEND Orthopaedic Surgery
DX: M14.672 Charcot's joint, left ankle and foot (principal)

== ENCOUNTER 2022-08-22 13:52 | Emergency (ER) | payer BC, SELFPAY ==
[~2022-08-22] VITALS: Ht 167.6 cm; Wt 65.9 kg
[~2022-08-22 13:52] MED LIST changes: +LISI10TA22 PO; -LISI10TA4 PO
[2022-08-22] MEDS ORDERED: METO1TAB32 (14:21)
[2022-08-22] MEDS ORDERED: PANT40TA29 (14:21)
[2022-08-22] MEDS ORDERED: TOPR25TA PO (19:42)
[2022-08-22] MEDS ORDERED: METF-877 PO (19:42)
[2022-08-22] MEDS ORDERED: CEPH500C PO (19:43)
[2022-08-22] MEDS ORDERED: CEPHALEXIN 500 MG CAP PO ONE (19:45)
[2022-08-22 19:59] VITALS: BP 143/88
== END 2022-08-22 20:00 | disposition home or self-care (01) ==
LOC: M ED 13:52
DX: Z48.02 Encounter for removal of sutures (principal); Z89.612 Acquired absence of left leg above knee; Z76.0 Encounter for issue of repeat prescription; E11.9 Type 2 diabetes mellitus without complications; I10 Essential (primary) hypertension; K21.9 Gastro-esophageal reflux disease without esophagitis; Z79.4 Long term (current) use of insulin; Z79.899 Other long term (current) drug therapy

== ENCOUNTER → 2025-03-02 | Outpatient (REF) | payer OTHER ==
[~2025-03-02] MED LIST changes: +METF-877 PO; +METO1TAB32; +PANT40TA29; +TOPR25TA PO
[2025-03-02 18:36] LABS: BASO # 0.1 10^3/uL (0.0-0.2); BASO % 0.9 % (0.0-1.0); EOS # 0.4 10^3/uL (0.0-0.5); EOS % 5.7 % (0.0-3.0); LYMPH # 1.2 10^3/uL (1.5-5.0); LYMPH % 17.1 % (24.0-44.0); MONO # 0.6 10^3/uL (0.0-0.8); MONO % 8.2 % (2.0-8.0); NEUTROPHILS # 4.6 10^3/uL (1.5-8.5); NEUTROPHILS % 67.7 % (36.0-66.0); PLATELET COUNT, AUTOMATED 256 10^3/uL (150-450)
[2025-03-02 19:01] LABS: ALT/SGPT 19 U/L (7.0-40); AST/SGOT 17 U/L (<34); CALCIUM LEVEL 9.0 MG/DL (8.5-10.1); CARBON DIOXIDE LEVEL 26 MMOL/L (20-31); CHLORIDE LEVEL 105 MMOL/L (98-107); CHOLESTEROL LEVEL 173 MG/DL (<200); CHOLESTEROL RISK RATIO 3.75 (<5); CREATININE FOR GFR 0.98 MG/DL (0.70-1.30); ESTIMATED AVERAGE GLUCOSE 120.0 MG/DL (60-110); GLOMERULAR FILTRATION RATE > 90.0 (>56); LDL CHOLESTEROL 106.3 MG/DL (<100); NON-HDL-C 126.9 MG/DL; POTASSIUM SERUM 4.6 MMOL/L (3.5-5.1); SODIUM LEVEL 142 MMOL/L (136-145); TRIGLYCERIDES LEVEL 103 MG/DL (<150)
== END ==
LOC: M SFHCLERA 09:12
PROVIDERS: ATTEND Internal Medicine
DX: E11.65 Type 2 diabetes mellitus with hyperglycemia (principal)